=== PATIENT | female | born 1950 | race Caucasian/White ===

== ENCOUNTER 2019-07-18 05:27 | Emergency (ER) | payer MEDICARE, SELFPAY ==
--- NOTE | ~2019-07-18 | XR_ITS ---
EXAMINATION: XR thoracic spine 3V, XR lumbar spine 2-3V DATE: 07/18/2019 07:00 INDICATION: Back pain post fall 3 days prior TECHNIQUE: 1. One AP, lateral and lateral swimmer's views of the thoracic spine were obtained. 2. AP, lateral and coned-down lateral lumbosacral views of the lumbar spine were obtained. COMPARISON: Two-view chest radiograph dated 06/06/2016 FINDINGS: Mild thoracic levocurvature. Sagittal alignment is normal. Burst fractures at T12 and L1 with 40% ant erior vertebral body height loss 2 mm retropulsion at the former and 20% anterior vertebral body heig ht loss and 4 mm retropulsion at the latter. These are new since 06/06/2016. Remaining vertebral body heights are normal. Mild disc height loss and degenerative endplate changes at a few levels in the th oracic spine. Mild degenerative endplate changes without significant disc height loss at L1-L2, L2-L3 and L3-L4. Ankylosis at the bilateral sacroiliac joints. Postoperative changes with surgical clips a nd suture lines in the left epigastric region. IMPRESSION: 1. T12 and L1 burst fractures. 2. Mild thoracolumbar spondylosis. Reviewed, dictated and finalized at location A. IMPRESSION: 1. T12 and L1 burst fractures. 2. Mild thoracolumbar spondylosis.
[2019-07-18 05:35] VITALS: BP 186/78; PULSE 75; RESP 19; TEMP 36.3; O2SAT 100
--- NOTE | 2019-07-18 06:43 | PC.NURSE ---
Patient to radiology.
--- NOTE | 2019-07-18 06:59 | ED.BACK ---
HPI - Back Pain/Injury General Chief Complaint: Back Pain/Injury Stated Complaint: back pain Time Seen by Provider: 07/18/19 05:59 History of Present Illness HPI Narrative: Patient is a 68-year-old female who presents the ER with back pain. Patient has history of dementia and cannot give a history so is at the bedside providing the background. Due to patient's dementia she often wakes up later in the day. On July 13 & upon waking up patient fell out of bed. She cannot tell her whether she felt dizzy or what was occurring that made her fall. She has not had a fall since then has been moving around without issue. However last night patient could not sleep due to discomfort in the upper portion of her back near T2 where there is slight swelling. There is no bruising. Patient is not had any infectious symptoms that the can tell including cough/shortness of breath/dysuria/fever. Has a history of having a UTI couple years ago but nothing recently. Related Data Home Medications Medication Instructions Recorded Confirmed aripiprazole 2 mg tablet 2 mg PO DAILY 05/14/19 05/18/19 aspirin 81 mg tablet,delayed 81 mg PO DAILY 05/14/19 05/18/19 release darifenacin 7.5 mg tablet,extended 7.5 mg PO DAILY 05/14/19 05/18/19 release 24 hr duloxetine 60 mg capsule,delayed 60 mg PO DAILY 05/14/19 05/18/19 release levetiracetam 750 mg tablet 750 mg PO Q12H 05/14/19 05/18/19 memantine 10 mg tablet 10 mg PO BID 05/14/19 05/18/19 multivitamin,ef-joqe-ifnjtywm 1 tablet PO DAILY 05/14/19 05/18/19 donepezil 10 mg tablet 10 mg PO DAILY tablet 05/18/19 05/18/19 glimepiride 4 mg tablet 8 mg PO QAM tablet 05/18/19 05/18/19 blood sugar diagnostic #10 each 07/16/19 lancets 30 gauge #25 each 07/16/19 Allergies Allergy/AdvReac Type Severity Reaction Status Date / Time iodine Allergy Unknown Hives Verified 05/31/19 13:07 shellfish derived Allergy Unknown Hives Verified 05/31/19 13:07 Contrast Media Allergy Mild RASH/DIFFICULTY Uncoded 07/18/19 06:03 BREATHING Review of Systems Review of Systems: ROS unobtainable: unobtainable due to mental status PMFSH Past Medical History Medical History Anxiety Arthritis Back pain Cataracts, both eyes Diabetes mellitus type 2, uncontrolled High blood pressure Osteoporosis Surgical History Surgical History History of ankle fracture s/p ORIF, bilateral History of arthroscopy of knee History of cholecystectomy History of gastric stapling History of hysterectomy Social History Social History Smoking packs per day: 1 Smoking cigarettes per day: 20.0 Years smoked: 30 Smoking pack-years: 30.00 Smoking status: Former smoker Tobacco type: cigarettes Second hand tobacco smoke exposure: No Smoking end date: 04/24/17 Alcohol intake: never Substance use: never Substance use type: does not use Gender identity (if verbalized by the patient): Female Exam Narrative: Exam Narrative: GENERAL: Well-appearing, well-nourished, and in no acute distress. HEAD: Normocephalic, atraumatic. ENT: Mucous membranes moist. NECK: Supple. FROM w/o midline tenderness. CHEST: Clear to auscultation. No respiratory distress. HEART: Regular rate and rhythm. Normal peripheral pulses. EXTREMITIES: Normal range of motion and strength BLE. No edema. BACK: Mild swelling at midline and just to the right at T2 w/o bruising/abrasion. Mild disomfort at this are. TTP at L2 midline. No additional evidence of trauma noted to the back. NEURO: Awake and alert, mild confusion, no slurred speech or facial droop. No sharp/soft touch deficit BLE. PSYCH: Normal mood and affect. Course Course Emergency Course: Patient resting comfortably. Accepted for transfer to [facility] ER by Dr. Horowitz. Vital Signs Vital signs:
[2019-07-18 07:21] LABS: Add Urine Microscopic? YES; Appearance Urine Clear (Clear); Bacteria Urine Trace /hpf; Bilirubin Urine Negative (Negative); Blood Urine Negative (Negative); Color Urine Yellow (Yellow); Glucose Urine UA Negative (Negative); Ketones Urine Negative (Negative); Leukocyte Esterase Ur Negative LEU/UL (Negative); Mucus Urine Rare /lpf; Nitrate Urine Negative (Negative); Protein Urine 2+ mg/dL (Negative); RBC Urine 0-2 /hpf (0-2); Specific Grav Ur 1.021 (1.001-1.035); Squamous Epithelial Cell Urine Occasional /hpf (Few); Urobilinogen Urine Negative mg/dL (<2.0); WBC Urine 0-3 /hpf
[2019-07-18 07:23] VITALS: BP 152/70; PULSE 75; RESP 16; O2SAT 95
[2019-07-18 08:51] VITALS: BP 158/70; PULSE 74; RESP 16; TEMP 37.1; O2SAT 99
== END 2019-07-18 09:42 | disposition short-term general hospital (02) ==
PROVIDERS: Emergency Provider Emergency Medicine; PCP Family Medicine
DX: S22.081A Stable burst fracture of T11-T12 vertebra, initial encounter for closed fracture (principal); S32.011A Stable burst fracture of first lumbar vertebra, initial encounter for closed fracture; M19.90 Unspecified osteoarthritis, unspecified site; E11.9 Type 2 diabetes mellitus without complications; I10 Essential (primary) hypertension; M81.0 Age-related osteoporosis without current pathological fracture; H26.9 Unspecified cataract; Z98.84 Bariatric surgery status; Z87.891 Personal history of nicotine dependence; M47.814 Spondylosis without myelopathy or radiculopathy, thoracic region; W06.XXXA Fall from bed, initial encounter
CPT/HCPCS: 51701; 72072; 72100; 81001; 96374; 99285; J3010

== ENCOUNTER → 2019-10-28 13:10 | Outpatient (CLI) | payer MEDICARE, SELFPAY ==
--- NOTE | ~2019-10-28 | XR_ITS ---
EXAMINATION: XR lumbar spine 2-3V DATE: 10/28/2019 13:46 INDICATION: Low back pain TECHNIQUE: Anteroposterior and lateral views of the lumbar spine, and cone-down lateral view of the l umbosacral junction were obtained. COMPARISON: 07/18/2019 FINDINGS: There are stable burst fractures of T12 and L1. No acute fracture is identified. Vertebral body alignment is normal. The lumbar vertebral body heights are maintained. Small degenerative osteop hytes project from the anterior endplates of multiple vertebral bodies. Calcified atherosclerosis is noted. There are surgical changes of the left upper quadrant. IMPRESSION: 1. Stable burst fractures of T12 and L1 and mild lumbar spondylosis without acute findings or signifi cant interval change. Reviewed, dictated and finalized at location A. IMPRESSION: 1. Stable burst fractures of T12 and L1 and mild lumbar spondylosis without acu te findings or significant interval change.
--- NOTE | ~2019-10-28 | XR_ITS ---
XR thoracic spine 2V DATE: 10/28/2019 13:46 INDICATION: Upper midline back pain after fall 4 days ago TECHNIQUE: AP, lateral, swimmer views COMPARISON: 07/18/2019 thoracic spine FINDINGS: There is moderately severe degenerative spurring at C6-7. Moderate osteopenia. There is mild spurring of the thoracic spine. No fracture or dislocation or bone destruction. The thoracic pedicles are intact. Postoperative change of the left upper quadrant. IMPRESSION: Osteopenia Degenerative changes Reviewed, dictated and finalized at location B.
== END ==
PROVIDERS: Visit Provider Nurse Practitioner Gerontology
DX: S22.080D Wedge compression fracture of T11-T12 vertebra, subsequent encounter for fracture with routine healing (principal); X58.XXXD Exposure to other specified factors, subsequent encounter; M47.896 Other spondylosis, lumbar region; M85.88 Other specified disorders of bone density and structure, other site; M51.34 Other intervertebral disc degeneration, thoracic region
CPT/HCPCS: 72070; 72100

== ENCOUNTER 2019-12-27 09:36 | Observation (INO) | payer MEDICARE, SELFPAY ==
[2019-12-27] VITALS (8 sets, daily range): BP systolic 122–142; BP diastolic 55–73; PULSE 64–92; RESP 16–20; TEMP 35.9–36.6; O2SAT 95–98; BMI 29.7
--- NOTE | ~2019-12-27 | XR_ITS ---
EXAMINATION: XR chest 1V portable INDICATION: Altered mental status TECHNIQUE: Portable AP chest at 1031 hours COMPARISON: 07/02/2017 FINDINGS: There are minimal peripheral airspace opacities in the left mid and lower lung zones. No pl eural effusion or pneumothorax is identified. The cardiomediastinal silhouette is normal. Surgical ch anges are noted near the gastroesophageal junction in the left upper quadrant. IMPRESSION: 1. Minimal peripheral airspace opacities of the left mid and lower lung zones, consistent with atelec tasis versus pneumonia. Reviewed, dictated and finalized at location A. IMPRESSION: 1. Minimal peripheral airspace opacities of the left mid and lower lung zones, consistent with atelectasis versus pneumonia.
--- NOTE | ~2019-12-27 | US_ITS ---
EXAMINATION: US right upper quadrant DATE: 12/27/2019 11:57 INDICATION: Elevated liver function tests TECHNIQUE: Multiple grayscale and Doppler ultrasound images of the abdomen were obtained. COMPARISON: None FINDINGS: The pancreatic body is normal in appearance. The pancreatic head and tail are not visualized. Visual ized proximal inferior vena cava is normal. Liver has normal echogenicity and contour, with a smooth surface. No liver lesion identified. Mild central intrahepatic biliary ductal dilation. Portal venous flow was seen in the hepatopetal, normal direction and has normal Doppler waveform. Gallbladder is n ot visualized and reportedly surgically absent. The common bile duct is dilated to 11 mm. No obstruct ing stone or mass identified however the region of the distal duct is not visualized. Visualized port ion of the right kidney demonstrates normal echogenicity and contour with no hydronephrosis. IMPRESSION: 1. Dilated common bile duct measuring up to 11 mm along with mild central intrahepatic biliary ductal dilation which could be related to prior cholecystectomy. If there is clinical concern for biliary o bstruction would consider MRCP for further evaluation. Reviewed, dictated and finalized at location B. IMPRESSION: 1. Dilated common bile duct measuring up to 11 mm along with mild central intra hepatic biliary ductal dilation which could be related to prior cholecystectomy . If there is clinical concern for biliary obstruction would consider MRCP for further evaluation.
--- NOTE | ~2019-12-27 | CT_ITS ---
EXAMINATION: CT brain wo con INDICATION: Altered mental status, confusion COMPARISON: 07/03/2017, 06/08/2016 TECHNIQUE: Standard unenhanced head CT. The dose-length product (DLP) was 908.00 mGy-cm. The mA was a djusted according to patient size. Iterative reconstruction technique was employed. FINDINGS: There is no acute intraparenchymal hemorrhage. There is an unchanged 1.9 cm hyperdense extr a-axial mass at the superior aspect of the left tentorium and inferomedial to the left temporal lobe, consistent with a meningioma. No evidence of acute infarction. There is mild periventricular and sub cortical hypodensity probably related to small vessel ischemic disease. There is mild prominence of t he sulci and ventricles related to cerebral atrophy. Intracranial calcified cerebral atherosclerosis is noted. There are no extra-axial collections. There is no mass effect or midline shift. The orbits and soft tissues are unremarkable. There is mild mucosal thickening of the paranasal sinuses. IMPRESSION: 1. No acute intracranial abnormality. 2. Age related findings. 3. Stable extra-axial mass on the left, consistent with a meningioma. Reviewed, dictated and finalized at location A.
--- NOTE | 2019-12-27 09:50 | ECG_ITS ---
Measurements Intervals [place] Rate: 64 P: 142 MO: 108 QRS: 0 QRSD: 90 T: 20 QT: 437 QTc: 453 Interpretive Statements SINUS RHYTHM WITH SHORT MO INTERVAL MINIMAL Q WAVES- INFERIOR LEADS BASELINE ARTIFACT- I, III, AVR, AVL,A VF, V1 BORDERLINE ECG Electronically Signed On 12-27-2019 11:48:45 CDT by Elie Garsia D.O.
[2019-12-27 09:55] LABS: Glucose Point of Care 154 (65-105)
[2019-12-27] MEDS: DEXTROSE 5%/0.9% SOD CHL 1,000 ML 100 ML IV CONT (10:06)
[2019-12-27 10:07] LABS: Basophils Absolute Auto 0.02 K/mm3 (0.00-0.10); Basophils Percent Auto 0.4 % (0.0-1.0); Eosinophils Absolute Auto 0.02 K/mm3 (0.02-0.50); Eosinophils Percent Auto 0.4 % (1.0-6.0); Hematocrit 35.3 % (35.0-42.0); Hemoglobin 10.4 g/dL (11.7-13.8); Immature Granulocyte Absolute 0.01 K/mm3 (0.00-0.00); Immature Granulocyte Percent A 0.2 % (0.0-0.0); Lymphocytes Absolute Auto 1.07 K/mm3 (1.10-4.50); Lymphocytes Percent Auto 19.6 % (18.0-42.0); Mean Corpuscular HGB Conc 29.5 g/dL (32.0-36.0); Mean Corpuscular Volume 81.5 fL (78.0-102.0); Mean Platelet Volume 10.6 fl (9.2-11.8); Monocytes Percent Auto 7.3 % (2.0-11.0); Neutrophils Absolute Auto 3.9 K/mm3 (1.7-7.2); Neutrophils Percent Auto 72.1 % (50.0-70.0); Platelet Count Result 347 K/mm3 (150-420); Red Blood Count 4.33 M/mm3 (4.20-5.40); Red Cell Distribution Width 14.3 % (11.6-14.4); White Blood Count 5.5 K/mm3 (4.8-10.8)
[2019-12-27 10:21] LABS: Partial Thromboplastin Time 27.4 SEC (22.3-31.6); Prothrombin Time 10.5 Seconds (9.64-11.0)
[2019-12-27 10:34] LABS: Acetaminophen < 2 ug/mL (10-30); Alanine Aminotransferase 174 U/L (14-59); Albumin Level 3.1 g/dL (3.4-5.0); Alkaline Phosphatase 171 U/L (46-116); Ammonia < 10 umol/L (11-32); Anion Gap 8 mmol/L (8-16); Aspartate Amino Transferase 211 U/L (15-37); Bilirubin,Total 0.2 mg/dL (0.00-1.00); Blood Urea Nitrogen 14 mg/dL (7-18); Calcium 8.8 mg/dL (8.5-10.1); Carbon Dioxide 26 mmol/L (21-32); Chloride 105 mmol/L (98-108); Creatine Kinase 24 U/L (26-192); Estimated CRCL calculation 35 ml/min; Estimated Glomerular Filt Rate 38; Ethanol < 3 mg/dL (0-6); Glucose 167 mg/dL (70-99); Osmolality Calculated 292 mOsm/kg (285-295); Potassium 4.5 mmol/L (3.5-5.1); Salicylate 0.8 mg/dL (2.8-20.0); Sodium 139 mmol/L (136-145); Thyroid Stimulating Hormone 0.71 uIU/mL (0.36-3.74); Total Protein 6.6 g/dL (6.4-8.2); Troponin I < 0.02 ng/mL (0.00-0.056)
[2019-12-27 10:46] LABS: Add Urine Microscopic? YES; Bilirubin Urine Negative (Negative); Blood Urine Negative (Negative); Color Urine Yellow (Yellow); Glucose Urine UA Negative (Negative); Ketones Urine Negative (Negative); Leukocyte Esterase Ur 1+ LEU/UL (Negative); Nitrate Urine Positive (Negative); Protein Urine Negative (Negative); Urobilinogen Urine 0.2 mg/dL (0.2-1.0)
[2019-12-27 10:51] LABS: Appearance Urine Sl Cloudy (Clear); Bacteria Urine 4+ /hpf; RBC Urine 0-2 /hpf (0-2); Squamous Epithelial Cell Urine Few /hpf (Few)
[2019-12-27 10:57] LABS: Amphetamine Screen Urine Negative (Negative); Barbiturate Screen Urine Negative (Negative); Benzodiazepines Screen Urine Negative (Negative); Cannabinoid Screen Urine Negative (Negative); Cocaine Screen Urine Negative (Negative); Methadone Screen Urine Negative (Negative); Opiate Screen Urine Negative (Negative); Phencyclidine Screen Urine Negative (Negative)
--- NOTE | 2019-12-27 11:04 | ED.AMS ---
HPI - Altered Mental Status General Chief Complaint: Altered Mental Status Stated Complaint: 69YO female w/ known h.o DMII was found by to be sweating and unable to answer questions this morning at 8am. called EMS who found pt Bs in 30's. They gave her an amp of d50 and patient's symptoms resolved. Upon further questioning pt's states she has been feelingunwell for last several days w/ poor Po intake but has been taking her usual meds. Related Data Home Medications Medication Instructions Recorded Confirmed aspirin 81 mg tablet,delayed 81 mg PO DAILY 05/14/19 12/27/19 release darifenacin 7.5 mg tablet,extended 7.5 mg PO DAILY 05/14/19 12/27/19 release 24 hr duloxetine 60 mg capsule,delayed 60 mg PO DAILY 05/14/19 12/27/19 release levetiracetam 750 mg tablet 750 mg PO Q12H 05/14/19 12/27/19 memantine 10 mg tablet 10 mg PO BID 05/14/19 12/27/19 donepezil 10 mg tablet 10 mg PO DAILY tablet 05/18/19 12/27/19 bismuth subsalicylate 262 mg tablet 2 tablet PO Q30-60M PRN 11/21/19 12/27/19 psyllium husk 0.4 gram capsule 0.4 gm PO DAILY 11/21/19 12/27/19 Allergies Allergy/AdvReac Type Severity Reaction Status Date / Time iodine Allergy Unknown Hives Verified 05/31/19 13:07 shellfish derived Allergy Unknown Hives Verified 05/31/19 13:07 Contrast Media Allergy Mild RASH/DIFFICULTY Uncoded 07/18/19 06:03 BREATHING Review of Systems Review of Systems: All systems reviewed & are unremarkable except as noted in HPI and below Constitutional: Constitutional: Reports as per HPI, Reports no additional constitutional complaints, Denies chills, Reports fatigue, Denies fever(s) and Reports weakness Eyes: Eyes: Reports as per HPI ENT: Reports system reviewed and no additional complaints, except as documented and Reports as per HPI Cardiovascular: Cardiovascular: Reports as per HPI and Reports no additional cardiovascular complaints Respiratory: Respiratory: Denies chest congestion, Reports cough, Denies dyspnea and Denies wheezing Gastrointestinal: Gastrointestinal: Reports as per HPI and Reports no additional gastrointestinal complaints Genitourinary: Genitourinary: Reports no additional female genitourinary complaints Musculoskeletal: Musculoskeletal: Reports no additional musculoskeletal complaints Integumentary/Breasts: Skin/Breast: Reports system reviewed and no additional complaints, except as docu Neurologic: Reports weakness Psychiatric: Psychiatric: Reports no additional psychiatric complaints Endocrine: Endocrine: Reports excessive sweating Hematologic/Lymphatic: Hematologic/Lymphatic: Reports no additional hematologic/lymphatic complaints Allergic/Immunologic: Allergic/Immunologic: Reports no additional allergic/immunologic complaints PMFSH Past Medical History Medical History Anxiety Arthritis Back pain Cataracts, both eyes Compression fracture T12/ L1 Diabetes mellitus type 2, uncontrolled High blood pressure Osteoporosis Surgical History Surgical History History of ankle fracture s/p ORIF, bilateral History of arthroscopy of knee History of cholecystectomy History of gastric stapling History of hysterectomy Family History Family History Mother Hypertension Family history of diabetes mellitus in first degree relative Family history of thyroid disease Family history of osteoporosis Family history of mental disorder Family history of glaucoma Family history of cataracts Family history of anemia Family history of chronic obstructive pulmonary disease Family history of congestive heart failure Sibling Hypertension Family history of diabetes mellitus in first degree relative Depression Family history of alcoholism Father Family history of diabetes mellitus in first degree relative S
[2019-12-27 11:45] LABS: Lactic Acid 1.3 mmol/L (0.4-2.0)
[2019-12-27 12:00] LABS: Glucose Point of Care 200 (65-105)
[2019-12-27] MEDS: levoFLOXacin 500 MG/D5W 100 ML 500 MG/100 ML BAG 100 MG IVPB (12:03)
--- NOTE | 2019-12-27 12:11 | PC.NURSE ---
VORB FOR D5NS TO BE DISCONTINUED FROM DR COVINGTON
--- NOTE | 2019-12-27 14:30 | PC.NURSE ---
Admitted to 204 for hypoglycemia and pneumonia, current glucose 200, normal WBC and Lactate, Incontinent of urine and stool normal for patient, has hx of dementia, at home had a thick tongue and not acting right since approx 0100, last known BM Monday, reports goes daily, states also sleeps alot during day time which is normal due to dementia, stools due to medication are usually dark in color, normal mentation at this time, did receive IV levaquin in ED, no fever, no decreased appetite, oriented to room and side rails up for safety, education on visitor policy
[2019-12-27] MEDS: DOCUSATE SODIUM 100 MG CAPSULE PO (16:52)
[2019-12-27] MEDS: ENOXAPARIN 40 MG/0.4 ML SYRINGE SUB-Q (16:59)
[2019-12-27 17:04] LABS: Glucose Point of Care 43 (65-105)
[2019-12-27] MEDS: DEXTROSE 50% 25 GM/50 ML SYRINGE IV PUSH (17:05)
--- NOTE | 2019-12-27 17:12 | PC.NURSE ---
eating dinner, d 50 given 1/2 amp for low sugar of 43 no s/s at this time, alert and recognizes , no trouble swallowing
[2019-12-27 17:36] LABS: Glucose Point of Care 87 (65-105)
[2019-12-27 18:32] LABS: Glucose Point of Care 162 (65-105)
[2019-12-27] MEDS: levETIRAcetam 250 MG TABLET 750 MG PO (19:43)
[2019-12-27 20:04] LABS: Glucose Point of Care 208 (65-105)
[2019-12-27] MEDS: DULoxetine HCL 30 MG CAPSULE.DR PO (22:25)
[2019-12-27] MEDS: DONEPEZIL HCL 5 MG TABLET 10 MG PO (22:25)
[2019-12-27 23:50] LABS: Glucose Point of Care 220 (65-105)
[2019-12-28 03:44] LABS: Glucose Point of Care 135 (65-105)
[2019-12-28] MEDS: levETIRAcetam 250 MG TABLET 750 MG PO (05:40)
[2019-12-28 05:45] LABS: Basophils Absolute Auto 0.03 K/mm3 (0.00-0.10); Basophils Percent Auto 0.4 % (0.0-1.0); Eosinophils Absolute Auto 0.07 K/mm3 (0.02-0.50); Hematocrit 33.1 % (35.0-42.0); Hemoglobin 9.7 g/dL (11.7-13.8); Immature Granulocyte Absolute 0.03 K/mm3 (0.00-0.00); Immature Granulocyte Percent A 0.4 % (0.0-0.0); Lymphocytes Absolute Auto 2.34 K/mm3 (1.10-4.50); Lymphocytes Percent Auto 32.6 % (18.0-42.0); Mean Corpuscular HGB Conc 29.3 g/dL (32.0-36.0); Mean Corpuscular Hemoglobin 23.9 pg (27.0-31.0); Mean Corpuscular Volume 81.5 fL (78.0-102.0); Mean Platelet Volume 10.4 fl (9.2-11.8); Monocytes Absolute Auto 0.62 K/mm3 (0.10-0.90); Monocytes Percent Auto 8.6 % (2.0-11.0); Neutrophils Absolute Auto 4.1 K/mm3 (1.7-7.2); Platelet Count Result 309 K/mm3 (150-420); Red Blood Count 4.06 M/mm3 (4.20-5.40); Red Cell Distribution Width 14.6 % (11.6-14.4); White Blood Count 7.2 K/mm3 (4.8-10.8)
[2019-12-28 05:56] LABS: Anion Gap 6 mmol/L (8-16); Blood Urea Nitrogen 16 mg/dL (7-18); Calcium 8.7 mg/dL (8.5-10.1); Carbon Dioxide 27 mmol/L (21-32); Chloride 106 mmol/L (98-108); Estimated CRCL calculation 38 ml/min; Estimated Glomerular Filt Rate 36; Glucose 149 mg/dL (70-99); Osmolality Calculated 292 mOsm/kg (285-295); Potassium 4.2 mmol/L (3.5-5.1); Sodium 139 mmol/L (136-145)
[2019-12-28 08:00] VITALS: BP 142/66; PULSE 66; RESP 16; TEMP 36; O2SAT 99
--- NOTE | 2019-12-28 08:06 | WPDREHABHP ---
H&P: HPI History of Present Illness Date/Time: 12/28/19 08:06 Chief complaint: Hypoglycemia secondary to DMII,CAP,Elevated LFTs Narrative: Cynthia Logan is a 69 year old female who was brought in by ambulance yesterday for hypoglycemia she did respond to dextrose injection. Upon interviewing the yesterday he indicated that the patient looks the same as when she had a seizure 3 years ago and he was concerned this may also be the case yes she was hypoglycemic. Patient is also on Keppra. Patient was not able to communicate very well during assessment provided most of the information. states that when he found her yesterday morning patient was diaphoretic with the same symptoms he described as having a seizure 3 years ago. Patient was admitted under observation by the ER provider. [facility] Past Medical History Medical History Anxiety Arthritis Back pain Cataracts, both eyes Compression fracture T12/ L1 Diabetes mellitus type 2, uncontrolled High blood pressure Osteoporosis Surgical History Surgical History History of ankle fracture s/p ORIF, bilateral History of arthroscopy of knee History of cholecystectomy History of gastric stapling History of hysterectomy Family History Family History Mother Hypertension Family history of diabetes mellitus in first degree relative Family history of thyroid disease Family history of osteoporosis Family history of mental disorder Family history of glaucoma Family history of cataracts Family history of anemia Family history of chronic obstructive pulmonary disease Family history of congestive heart failure Sibling Hypertension Family history of diabetes mellitus in first degree relative Depression Family history of alcoholism Father Family history of diabetes mellitus in first degree relative Social History Social History Smoking packs per day: 1 Smoking cigarettes per day: 20.0 Years smoked: 30 Smoking pack-years: 30.00 Smoking status: Former smoker Tobacco type: cigarettes Second hand tobacco smoke exposure: No Smoking end date: 04/24/17 Alcohol intake: never Substance use: never Substance use type: does not use Gender identity (if verbalized by the patient): Female Spiritual care concerns: No Meds Home Medications and Allergies Home Medications Medication Instructions Recorded Confirmed Type aspirin 81 mg tablet,delayed 81 mg PO DAILY 05/14/19 12/27/19 History release darifenacin 7.5 mg tablet,extended 7.5 mg PO DAILY 05/14/19 12/27/19 History release 24 hr duloxetine 60 mg capsule,delayed 60 mg PO DAILY 05/14/19 12/27/19 History release levetiracetam 750 mg tablet 750 mg PO Q12H 05/14/19 12/27/19 History memantine 10 mg tablet 10 mg PO BID 05/14/19 12/27/19 History donepezil 10 mg tablet 10 mg PO DAILY tablet 05/18/19 12/27/19 History simvastatin 40 mg tablet 40 mg PO QPM #90 tablet 07/15/19 12/27/19 Rx blood-glucose meter #1 each 07/23/19 12/27/19 Rx bismuth subsalicylate 262 mg tablet 2 tablet PO Q30-60M PRN 11/21/19 12/27/19 History psyllium husk 0.4 gram capsule 0.4 gm PO DAILY 11/21/19 12/27/19 History blood sugar diagnostic #200 each 11/22/19 12/27/19 Rx glimepiride 4 mg tablet 8 mg PO QAM 90 Days #180 tablet 11/22/19 12/27/19 Rx lancets 30 gauge #200 each 11/22/19 12/27/19 Rx losartan 25 mg tablet 25 mg PO DAILY 90 Days #90 tablet 11/22/19 12/27/19 Rx metformin 500 mg tablet,extended 1,000 mg PO BID 90 Days #0 tablet 11/22/19 12/27/19 Rx release 24 hr pen needle, diabetic 31 gauge x #100 each 11/22/19 12/27/19 Rx 5/16 insulin degludec 100 unit/mL (3 25 unit SUB-Q QPM 90 Days #30 ml 11/26/19 12/27/19 Rx mL) subcutaneous pen Allergies Allergy/AdvReac
[2019-12-28 08:08] LABS: Glucose Point of Care 157 (65-105)
[2019-12-28] MEDS: levETIRAcetam 500 MG TABLET 250 MG PO (09:18)
[2019-12-28] MEDS: LOSARTAN POTASSIUM 25 MG TABLET PO (09:19)
[2019-12-28] MEDS: MEMANTINE 5 MG TABLET 2.5 MG PO (09:19)
[2019-12-28] MEDS: PSYLLIUM POWDER PACKET 1 PACKET PO (09:19)
[2019-12-28] MEDS: ASPIRIN 81 MG ENTERIC TABLET PO (09:19)
[2019-12-28] MEDS: DOCUSATE SODIUM 100 MG CAPSULE PO (09:19)
--- NOTE | 2019-12-28 11:29 | PM.SD ---
Same Day Admit/Disch: HPI History of Present Illness Chief complaint: Hypoglycemia secondary to DMII,CAP,Elevated LFTs Narrative: Cynthia Logan is a 69 year old female who was brought in by ambulance yesterday for hypoglycemia she did respond to dextrose injection. Upon interviewing the yesterday he indicated that the patient looks the same as when she had a seizure 3 years ago and he was concerned this may also be the case yes she was hypoglycemic. Patient is also on Keppra. Patient was not able to communicate very well during assessment provided most of the information. states that when he found her yesterday morning patient was diaphoretic with the same symptoms he described as having a seizure 3 years ago. Patient was admitted under observation by the ER provider. [facility] Past Medical History Medical History Anxiety Arthritis Back pain Cataracts, both eyes Compression fracture T12/ L1 Diabetes mellitus type 2, uncontrolled High blood pressure Osteoporosis Surgical History Surgical History History of ankle fracture s/p ORIF, bilateral History of arthroscopy of knee History of cholecystectomy History of gastric stapling History of hysterectomy Family History Family History Mother Hypertension Family history of diabetes mellitus in first degree relative Family history of thyroid disease Family history of osteoporosis Family history of mental disorder Family history of glaucoma Family history of cataracts Family history of anemia Family history of chronic obstructive pulmonary disease Family history of congestive heart failure Sibling Hypertension Family history of diabetes mellitus in first degree relative Depression Family history of alcoholism Father Family history of diabetes mellitus in first degree relative Social History Social History Smoking packs per day: 1 Smoking cigarettes per day: 20.0 Years smoked: 30 Smoking pack-years: 30.00 Smoking status: Former smoker Tobacco type: cigarettes Second hand tobacco smoke exposure: No Smoking end date: 04/24/17 Alcohol intake: never Substance use: never Substance use type: does not use Gender identity (if verbalized by the patient): Female Spiritual care concerns: No Same Day Admit/Disch: Med Pre-admit Medications Home Medications Medication Instructions Recorded Confirmed Type aspirin 81 mg tablet,delayed 81 mg PO DAILY 05/14/19 12/27/19 History release darifenacin 7.5 mg tablet,extended 7.5 mg PO DAILY 05/14/19 12/27/19 History release 24 hr duloxetine 60 mg capsule,delayed 60 mg PO DAILY 05/14/19 12/27/19 History release levetiracetam 750 mg tablet 750 mg PO Q12H 05/14/19 12/27/19 History memantine 10 mg tablet 10 mg PO BID 05/14/19 12/27/19 History donepezil 10 mg tablet 10 mg PO DAILY tablet 05/18/19 12/27/19 History simvastatin 40 mg tablet 40 mg PO QPM #90 tablet 07/15/19 12/27/19 Rx blood-glucose meter #1 each 07/23/19 12/27/19 Rx bismuth subsalicylate 262 mg tablet 2 tablet PO Q30-60M PRN 11/21/19 12/27/19 History psyllium husk 0.4 gram capsule 0.4 gm PO DAILY 11/21/19 12/27/19 History blood sugar diagnostic #200 each 11/22/19 12/27/19 Rx glimepiride 4 mg tablet 8 mg PO QAM 90 Days #180 tablet 11/22/19 12/27/19 Rx lancets 30 gauge #200 each 11/22/19 12/27/19 Rx losartan 25 mg tablet 25 mg PO DAILY 90 Days #90 tablet 11/22/19 12/27/19 Rx metformin 500 mg tablet,extended 1,000 mg PO BID 90 Days #0 tablet 11/22/19 12/27/19 Rx release 24 hr pen needle, diabetic 31 gauge x #100 each 11/22/19 12/27/19 Rx 5/16 insulin degludec 100 unit/mL (3 25 unit SUB-Q QPM 90 Days #30 ml 11/26/19 12/27/19 Rx mL) subcutaneous pen Exam Const: General: co
[2019-12-28 11:51] LABS: Glucose Point of Care 280 (65-105)
[2019-12-28] MEDS: levoFLOXacin 500 MG/D5W 100 ML 500 MG/100 ML BAG 100 MG IVPB (12:50)
[2020-01-01 11:46] LABS: Levetiracetam Keppra 46.6 mcg/mL (12.0-46.0)
--- NOTE | 2020-01-01 14:22 | PM.EVENT ---
Event Note Event Note Event Note: Sensitivity returned K pneumoniae and E. coli both sensitive to Bactrim. E scribed prescription to pharmacy and call patient to inform that medication had been changed.
== END 2019-12-28 14:25 | disposition home or self-care (01) ==
LOC: CHSED 11:22 → CHS2ND 13:41
PROVIDERS: Nurse Practitioner Family; Admitting Provider Family Medicine; Emergency Provider Family Medicine; Visit Provider Family Medicine
DX: E11.649 Type 2 diabetes mellitus with hypoglycemia without coma (principal); N39.0 Urinary tract infection, site not specified; J18.9 Pneumonia, unspecified organism; R74.8 Abnormal levels of other serum enzymes; I10 Essential (primary) hypertension; R56.9 Unspecified convulsions; M81.0 Age-related osteoporosis without current pathological fracture; H26.9 Unspecified cataract; R93.89 Abnormal findings on diagnostic imaging of other specified body structures; F41.9 Anxiety disorder, unspecified; Z87.891 Personal history of nicotine dependence; Z98.84 Bariatric surgery status
CPT/HCPCS: 36415; 70450; 71045; 76705; 80048; 80053; 80177; 80307; 81001; 82140; 82550; 82948; 83605; 84443; 84484; 85025; 85610; 85730; 87040; 87086; 87088; 87147; 87186; 93005; 96361; 96365; 96366; 96372; 96375; 99283; 99285; A9270; G0378; J1650; J1956; J7042

== ENCOUNTER 2020-12-01 13:07 | Outpatient (CLI) | payer MEDICARE, SELFPAY ==
--- NOTE | 2020-12-02 09:41 | WPDNEUROLOGY ---
Neurology EEG Report General Information Date of Study: 12/01/20 TEST eeg DIAGNOSIS Dysfunction with arousal disturbances CONDITION OF RECORDING awake drowsy and sleep EEG NUMBER [id number] CLINICAL HISTORY patient unable to give history, stated patient had a seizure about 3 years ago and has ongoing dementia. EEG DESCRIPTION basic resting occipital frequency consists of small amount of poorly organized low voltage 9 to 11 hertz per 2nd alpha admixed with low-voltage 15 to 18 hertz per 2nd beta. During drowsiness low-voltage beta activity seen diffusely admixed with waxing and waning theta activity. Bilateral intermittent delta activity seen with right hemispheric dominant during wakefulness and drowsiness. Photic stimulation produced poor drive, hyperventilation not done. Non paroxysmal ,focal and lateralizing IMPRESSION abnormal record due to the presence of bihemispheric theta and delta activity with right hemispheric dominance clinical correlation recommended, these abnormalities could be consistent with the ongoing neuro degenerative process or metabolic encephalopathy in addition to the possibility of postictal state.
== END 2020-12-01 13:08 | disposition home or self-care (01) ==
PROVIDERS: PCP Family Medicine; Visit Provider Psychiatry & Neurology Neurology
DX: G47.51 Confusional arousals (principal)
CPT/HCPCS: 95816

== ENCOUNTER 2020-12-08 12:50 | Outpatient (CLI) | payer MEDICARE, SELFPAY ==
--- NOTE | ~2020-12-08 | MR_ITS ---
EXAMINATION: MR brain/brain stem wo con DATE: 12/08/2020 13:37 INDICATION: Dementia. TECHNIQUE: Magnetic resonance imaging (MRI) of the brain and brainstem was performed without intraven ous contrast. Sequences included sagittal and axial T1-weighted FSE, axial diffusion-weighted FS EPI, axial T2*-weighted GRE, axial T2-weighted FLAIR Propeller, and axial T2-weighted Propeller. Apparent diffusion coefficient (ADC) maps were created. COMPARISON: Brain MRI 05/20/2017, 02/22/2017 FINDINGS: There is no acute ischemic infarct or intracranial hemorrhage. There is a 2.2 x 1.3 cm extr a-axial mass inferior to left temporal lobe, consistent with a meningioma. There are scattered areas of nonspecific increased T2-weighted signal intensity in the cerebral white matter and krystina. The vent ricles are normal in size. There are likely changes of ocular lens replacement surgeries. The paranas al sinuses are clear. There is a trace left mastoid effusion. IMPRESSION: 1. 2.2 cm meningioma inferior to left upper lobe, stable from 17. 2. Worsened moderate nonspecific cerebral white matter disease and pontine disease, which likely repr esents chronic small vessel ischemic disease. Reviewed, dictated and finalized at location B. IMPRESSION: 1. 2.2 cm meningioma inferior to left upper lobe, stable from 17. 2. Worsened moderate nonspecific cerebral white matter disease and pontine dise ase, which likely represents chronic small vessel ischemic disease.
== END 2020-12-08 12:51 | disposition home or self-care (01) ==
LOC: ANHIMG 12:54
PROVIDERS: PCP Family Medicine; Visit Provider Psychiatry & Neurology Neurology
DX: G47.8 Other sleep disorders (principal); R93.0 Abnormal findings on diagnostic imaging of skull and head, not elsewhere classified
CPT/HCPCS: 70551

== ENCOUNTER 2021-04-18 18:51 | Inpatient (IN) | payer MEDICARE, SELFPAY ==
--- NOTE | ~2021-04-18 | CT_ITS ---
EXAMINATION:CT chest high resolution wo wi DATE: 04/21/2021 09:48 INDICATION: Cough. TECHNIQUE: Computed tomography (CT) of the chest was performed without intravenous contrast. Automate d exposure control and iterative reconstruction technique were employed. The dose-length product (DLP ) was 475.69 mGy-cm. COMPARISON: Chest single view 04/20/2021 FINDINGS: Motion artifact is noted. There are a few nodules in the lungs measuring up to 3 mm, likely benign. No bronchiectasis or honeycombing. No pleural effusion. The heart size is normal. There are coronary artery calcifications. No pericardial effusion. Calcifications in the spleen are consistent with old granulomatous disease. There are surgical changes of the stomach. There is mild thoracic spo ndylosis. There are chronic burst fractures of T12 and L1. IMPRESSION: 1. Small lung nodules, likely benign. Reviewed, dictated and finalized at location B. RER SALVAGE
--- NOTE | ~2021-04-18 | XR_ITS ---
EXAMINATION: XR chest 2V DATE: 04/18/2021 19:18 INDICATION: Shortness of breath, cough and weakness. TECHNIQUE: frontal and lateral views of the chest were obtained. COMPARISON: Chest radiograph dated 12/27/19 and lumbar spine radiograph dated 10/28/2019 FINDINGS: The lungs are clear with no focal airspace opacities, pulmonary edema, pleural effusion or pneumothor ax. The cardiomediastinal silhouette is normal. Postoperative change left upper quadrant with suture line and multiple surgical clips. Chronic T12 and L1 compression fractures. IMPRESSION: 1. No acute cardiopulmonary disease. Reviewed, dictated and finalized at location H. AN PROFESSOR
--- NOTE | ~2021-04-18 | XR_ITS ---
EXAMINATION: XR chest 1V portable EXAM DATE: 04/20/2021 12:54 INDICATION: influenza, isolation precautions. TECHNIQUE: Portable AP frontal chest x-ray was obtained. Comparison is made to prior examination from 04/18/2021. FINDINGS: The lungs are clear. There are no pleural effusions. The cardiomediastinal silhouette is p rominent but magnified on this AP technique. There is no pneumothorax suspected. The bones and so ft tissues are unremarkable. IMPRESSION: No acute cardiopulmonary findings. Reviewed, dictated and finalized at location A. UM CASTER
[2021-04-18 18:55] VITALS: BP 153/85; PULSE 72; RESP 18; TEMP 36.9; O2SAT 100
--- NOTE | 2021-04-18 18:59 | ECG_ITS ---
Measurements Intervals Hubbard Rate: 70 P: 41 MT: 144 QRS: -17 QRSD: 90 T: 19 QT: 376 QTc: 407 Interpretive Statements SINUS OR ECTOPIC ATRIAL RHYTHM BASELINE ARTIFACT- V3, V6 BORDERLINE ECG Electronically Signed On 04-18-2021 20:14:35 VAULT PERSON by Elie Garsia D.O.
[2021-04-18 19:37] LABS: Basophils Absolute Auto 0.1 K/mm3 (0.0-0.1); Basophils Percent Auto 0.6 % (0.2-1.2); Hematocrit 33.4 % (37.0-47.0); Hemoglobin 10.1 g/dL (12.0-15.0); Immature Granulocyte Absolute 0.04 K/mm3 (0.00-0.031); Immature Granulocyte Percent A 0.5 % (0-0.5); Lymphocytes Absolute Auto 0.56 K/mm3 (0.9-3.2); Lymphocytes Percent Auto 6.8 % (18.3-44.2); Mean Corpuscular HGB Conc 30.2 g/dl (32-36); Mean Corpuscular Hemoglobin 23.3 pg (26-34); Mean Platelet Volume 10.8 fl (7.4-10.4); Monocytes Absolute Auto 0.6 K/mm3 (0.1-0.6); Monocytes Percent Auto 7.7 % (2.6-8.5); Neutrophils Absolute Auto 6.9 K/mm3 (1.3-6.7); Neutrophils Percent Auto 84.4 % (45.5-73.1); Platelet Count Result 286 k/mm3 (150-375); Red Blood Count 4.34 M/mm3 (4.2-5.4); Red Cell Distribution Width 14.6 % (11.5-14.5); White Blood Count 8.2 K/mm3 (4.5-10.0)
[2021-04-18 19:47] LABS: Alanine Aminotransferase 81 U/L (4-35); Albumin Level 3.8 g/dL (3.5-5.1); Alkaline Phosphatase 139 U/L (38-126); Anion Gap 2 mmol/L (8-16); Aspartate Amino Transferase 104 U/L (14-36); Bilirubin,Total 0.2 mg/dL (0.2-1.3); Blood Urea Nitrogen 14 mg/dL (7-17); Calcium 8.9 mg/dL (8.4-10.2); Carbon Dioxide 28 mmol/L (22-30); Chloride 100 mmol/L (98-107); Estimated Glomerular Filt Rate 37; Glucose 261 mg/dL (65-110); Potassium 5.3 mmol/L (3.4-5.0); Sodium 130 mmol/L (137-145)
--- NOTE | 2021-04-18 19:48 | ED.GENADULT ---
HPI - General Adult General Chief complaint: Upper Respiratory Infection Stated complaint: WET COUGH SINCE YEST, CANT WALK TODAY Time Seen by Provider: 04/18/21 19:19 History of Present Illness HPI narrative: Patient is a 70-year-old female who presents ER with cough. Began yesterday morning and has progressively worsened over the last 24 hours. Is very wet. reports yesterday evening after celebrating Dominick patient was too weak to walk. She has been that way throughout the day. Patient has dementia. She is vaccinated against Covid. No known exposures. denies any recent vomiting or possible aspiration. No history of heart failure. Patient found to be hypoxic here, does not wear O2 at home. Related Data Home Medications Medication Instructions Recorded Confirmed aspirin 81 mg tablet,delayed 81 mg PO HS 05/14/19 04/19/21 release duloxetine 60 mg capsule,delayed 60 mg PO DAILY 05/14/19 04/19/21 release memantine 10 mg tablet 10 mg PO BID 05/14/19 04/19/21 donepezil 10 mg tablet 10 mg PO DAILY tablet 05/18/19 04/19/21 multivitamin 1 tablet PO DAILY 04/07/21 04/19/21 trazodone 50 mg tablet 25 mg PO QHS PRN 04/07/21 04/19/21 glimepiride 1 mg PO QPM 04/19/21 04/19/21 levetiracetam 750 mg PO BID 04/19/21 04/19/21 metformin 500 mg BID 04/19/21 04/19/21 Allergies Allergy/AdvReac Type Severity Reaction Status Date / Time iodine Allergy Unknown Hives Verified 04/07/21 14:50 shellfish derived Allergy Unknown Hives Verified 04/07/21 14:50 Contrast Media Allergy Mild RASH/DIFFICULTY Uncoded 04/07/21 14:50 BREATHING Review of Systems Review of Systems: ROS unobtainable: Yes unobtainable due to mental status Constitutional: Constitutional: Denies chills, Reports fatigue, Denies fever(s) and Reports weakness Respiratory: Respiratory: Reports chest congestion, Reports cough and Reports dyspnea Gastrointestinal: Gastrointestinal: Denies diarrhea, Denies nausea and Denies vomiting [facility] Past Medical History Medical History (Updated 04/19/21 @ 07:26 by Topher Azevedo MD) Aftercare for fracture of vertebrae Anxiety Arthritis Back pain Cataracts, both eyes Chronic kidney disease, stage III (moderate) Compression fracture T12/ L1 Dementia Diabetic peripheral neuropathy High blood pressure Osteoporosis Pure hypercholesterolemia, unspecified Type 2 diabetes mellitus with hyperglycemia Surgical History Surgical History History of ankle fracture s/p ORIF, bilateral History of arthroscopy of knee History of cholecystectomy History of gastric stapling History of hysterectomy Family History Family History Mother Hypertension Family history of congestive heart failure Family history of diabetes mellitus in first degree relative Family history of thyroid disease Family history of osteoporosis Family history of mental disorder Family history of glaucoma Family history of cataracts Family history of anemia Family history of chronic obstructive pulmonary disease Sibling Hypertension Family history of diabetes mellitus in first degree relative Depression Family history of alcoholism Father Family history of diabetes mellitus in first degree relative Social History Social History Smoking packs per day: 1 Smoking cigarettes per day: 20.0 Years smoked: 30 Smoking pack-years: 30.00 Smoking status: Never smoker Second hand tobacco smoke exposure: No Alcohol intake: never Substance use: never Substance use type: does not use Gender identity (if verbalized by the patient): Female Sexual Orientation (if Verbalized by the Patient): Straight or Heterosexual Spiritual care concerns: No Exam Narrative: GENERAL: Ill-appearing, well-nourished, and in no acute distress. HEAD: Normocephalic, atraum
[2021-04-18] MEDS: SODIUM CHLORIDE 0.9% IV 1,000 ML 999 ML IV CONT (21:16)
[2021-04-18 21:17] VITALS: BP 146/73; PULSE 73; RESP 18; O2SAT 100
--- NOTE | 2021-04-18 21:51 | PM.IMHP ---
H&P: HPI History of Present Illness Date/Time: 04/18/21 21:51 Chief Complaint: Weakness. Narrative: This is a 70-year-old female with past medical history significant for type 2 diabetes mellitus, hypertension, advanced dementia, patient lives at home and her caregiver is her she is vaccinated against COVID. According to he noticed that she has been sleeping longer than usual she went for dinner other daughters on and every since in to be as usual however once they got home and she got out of the car she was weak to walk. Her brings her in today for evaluation. As per she has been eating well and drinking well did not notice any rigors, or cough or sputum production, no nausea ,vomiting or diarrhea. Preliminary workup was significant for low pulse ox patient require to be placed on 4 L by nasal cannula a chest x-ray did not show any acute infiltrates, chemistry panel was significant for a sodium of 130 potassium 5.3 creatinine of 1.4 brain atretic peptide was up wards 2000, AST/ALT/alk-phos were 104/89/139 hemoglobin of 10 MCV of 77. Patient tested negative for COVID a rapid test. Patient has been admitted for further evaluation, management and treatment. Review of Systems Review of Systems: ROS unobtainable: Yes unobtainable due to medical condition (Advanced dementia) [facility] Past Medical History Medical History (Updated 04/19/21 @ 02:52 by Jennifer Arias MD) Aftercare for fracture of vertebrae Anxiety Arthritis Back pain Cataracts, both eyes Chronic kidney disease, stage III (moderate) Compression fracture T12/ L1 Dementia Diabetic peripheral neuropathy High blood pressure Osteoporosis Pure hypercholesterolemia, unspecified Type 2 diabetes mellitus with hyperglycemia Surgical History Surgical History History of ankle fracture s/p ORIF, bilateral History of arthroscopy of knee History of cholecystectomy History of gastric stapling History of hysterectomy Family History Family History Mother Hypertension Family history of congestive heart failure Family history of diabetes mellitus in first degree relative Family history of thyroid disease Family history of osteoporosis Family history of mental disorder Family history of glaucoma Family history of cataracts Family history of anemia Family history of chronic obstructive pulmonary disease Sibling Hypertension Family history of diabetes mellitus in first degree relative Depression Family history of alcoholism Father Family history of diabetes mellitus in first degree relative Social History Social History Smoking packs per day: 1 Smoking cigarettes per day: 20.0 Years smoked: 30 Smoking pack-years: 30.00 Smoking status: Former smoker Tobacco type: cigarettes Second hand tobacco smoke exposure: No Smoking end date: 04/24/17 Alcohol intake: never Substance use: never Substance use type: does not use Gender identity (if verbalized by the patient): Female Sexual Orientation (if Verbalized by the Patient): Straight or Heterosexual Spiritual care concerns: No Meds Home Medications and Allergies Home Medications Medication Instructions Recorded Confirmed Type aspirin 81 mg tablet,delayed 81 mg PO HS 05/14/19 04/07/21 History release duloxetine 60 mg capsule,delayed 60 mg PO DAILY 05/14/19 04/19/21 History release memantine 10 mg tablet 10 mg PO BID 05/14/19 04/19/21 History donepezil 10 mg tablet 10 mg PO DAILY tablet 05/18/19 04/19/21 History omeprazole 20 mg capsule,delayed 20 mg PO DAILY #90 cap 07/29/20 04/19/21 Rx release simvastatin 40 mg tablet 40 mg PO QPM #90 tablet 09/16/20 04/19/21 Rx Tresiba FlexTouch U-100 100 14 unit SUB-Q QPM 90 Days #12.6 ml 12/21/20 04/19/21 Rx unit/mL (3 mL) subcut
[2021-04-18 22:11] LABS: NT Pro B Type Natriuretic Pept 2080 pg/mL (5-100)
[2021-04-18 23:31] VITALS: BP 147/65; PULSE 90; RESP 18; O2SAT 92
[2021-04-19] MEDS: SODIUM CHLORIDE 0.9% IV 1,000 ML 125 ML IV CONT (00:02)
[2021-04-19 00:05] VITALS: BP 155/68; PULSE 85; RESP 24; O2SAT 95
[2021-04-19 00:27] LABS: EDCOVIDSCREEN Negative (Negative)
[2021-04-19 01:01] VITALS: BMI 19.4
--- NOTE | 2021-04-19 01:03 | ADMGEN ---
This patient, Cytnhia Logan, was admitted to [facility] Surg Room 325-02. Patient/family oriented to hospital policies and general routines including ID bracelet, bed and alarms, visiting hours, pain management, procedures, bathroom and other care routines, personal items, smoking policy, room service/diet, and visiting hours. Information on how to activate the Rapid Response Team has been discussed. Patient/Family are encouraged to report perceived risks to care and to ask questions if they do not understand what they are told or what they should do.
[2021-04-19 01:12] VITALS: BMI 19.4
[2021-04-19 03:13] LABS: Anion Gap 0 mmol/L (8-16); Blood Urea Nitrogen 14 mg/dL (7-17); Calcium 8.1 mg/dL (8.4-10.2); Carbon Dioxide 27 mmol/L (22-30); Chloride 105 mmol/L (98-107); Estimated CRCL calculation 33 ml/min; Estimated Glomerular Filt Rate 41; Glucose 65 mg/dL (65-110); Sodium 132 mmol/L (137-145)
[2021-04-19 06:34] VITALS: BP 149/73; PULSE 79; RESP 20; TEMP 36.5; O2SAT 96
[2021-04-19 08:00] VITALS: BP 144/62; PULSE 83; RESP 16; TEMP 36.7; O2SAT 94
[2021-04-19 08:06] LABS: Glucose Point of Care 80 mg/dl (65-105)
[2021-04-19] MEDS: MIRABEGRON 25 MG ER TABLET PO (08:21)
[2021-04-19] MEDS: PANTOPRAZOLE 40 MG TABLET PO (08:21)
[2021-04-19] MEDS: levETIRAcetam 250 MG TABLET 750 MG PO ×2 (08:21→17:09)
[2021-04-19] MEDS: DULoxetine HCL 60 MG CAPSULE.DR PO (08:21)
[2021-04-19] MEDS: DONEPEZIL HCL 10 MG TABLET PO (08:21)
[2021-04-19] MEDS: MEMANTINE 10 MG TABLET PO ×2 (08:21→17:10)
[2021-04-19 09:16] LABS: D Dimer 0.29 ug/mL (<0.48)
[2021-04-19 10:32] LABS: Add Urine Microscopic? YES; Appearance Urine Cloudy (Clear); Bilirubin Urine Negative (Negative); Blood Urine Negative (Negative); Color Urine Yellow (Yellow); Glucose Urine UA Negative (Negative); Ketones Urine Negative (Negative); Leukocyte Esterase Ur Negative LEU/UL (Negative); Mucus Urine Rare /lpf; Nitrate Urine Negative (Negative); Protein Urine 3+ mg/dL (Negative); Specific Grav Ur 1.014 (1.001-1.035); Squamous Epithelial Cell Urine Moderate /hpf (Few); Urobilinogen Urine Negative mg/dL (<2.0); WBC Urine 0-3 /hpf
[2021-04-19 10:34] LABS: Influenza Control Positive
--- NOTE | 2021-04-19 10:52 | PC.NURSE ---
Pt requesting pt receive flu shoot at discharge.
[2021-04-19 11:50] LABS: Glucose Point of Care 126 mg/dl (65-105)
[2021-04-19 12:00] VITALS: BP 151/65; PULSE 93; RESP 18; TEMP 36.7; O2SAT 94
--- NOTE | 2021-04-19 14:44 | PM.IMPN ---
Progress Note: A&P Assessment and Plan (1) Influenza A: Code(s): J10.1 - Influenza due to other identified influenza virus with other respiratory manifestations Status: Acute Assessment and Plan: Patient is positive for influenza A -start Tamiflu, stop antibiotics -no pneumonia noted on chest x-ray. Hypoxia has resolved -monitor (2) Acute respiratory failure with hypoxia: Code(s): J96.01 - Acute respiratory failure with hypoxia Status: Acute Assessment and Plan: Resolved -likely due to above -pneumonia not seen on x-ray, no bacterial pneumonia suspected. Will discontinue antibiotics -D-dimer negative, PE less likely -BNP elevated, will obtain echo. Clinically she appears to be euvolemic (3) Abnormal liver enzymes: Code(s): R74.8 - Abnormal levels of other serum enzymes Status: Acute Assessment and Plan: Trending down from the prior visit but still elevated -no pain to the area -will add hepatitis screen for the morning -liver normal on u/s 12/27/2019 when her liver enzymes were higher (4) Chronic kidney disease, stage III (moderate): Code(s): N18.3 - Chronic kidney disease, stage 3 (moderate) Status: Acute Assessment and Plan: At baseline (5) Hypochromic microcytic anemia: Code(s): D50.9 - Iron deficiency anemia, unspecified Status: Acute Assessment and Plan: Chronically low but unchanged since last year -no bleeding noted on exam (6) Type 2 diabetes mellitus with hyperglycemia: Code(s): E11.65 - Type 2 diabetes mellitus with hyperglycemia Status: Acute Assessment and Plan: Last glucose 126 -patient usually on 14 units of Tresiba at home. Will hold insulin since the patient has a decreased appetite and has been running within acceptable range -continue sliding scale insulin (7) Diabetic peripheral neuropathy: Code(s): E11.42 - Type 2 diabetes mellitus with diabetic polyneuropathy Status: Acute Assessment and Plan: Chronic and unchanged (8) Dementia: Code(s): F03.90 - Unspecified dementia without behavioral disturbance Status: Acute Assessment and Plan: Chronic and unchanged -continue donepezil and memantine. (9) Major depressive disorder, single episode, unspecified: Code(s): F32.9 - Major depressive disorder, single episode, unspecified Status: Acute Assessment and Plan: Continue Mirabregon, duloxetine. (10) Overactive bladder: Code(s): N32.81 - Overactive bladder Status: Acute Assessment and Plan: Continue oxybutynin Time Spent With Patient Time with patient: 25 - 35 minutes Subjective Date/time seen: 04/19/21 14:44 Interval history: Pt is a 70-year-old female here cough and weakness. Patient was seen today and states she is doing okay and that she wants to go home. She denies chest pain, shortness of breath, fevers, chills, nausea, vomiting, diarrhea or constipation. She has dementia but able to hold a pretty good conversation and was alert and oriented to herself, place and situation. I called and spoke with the and let him know the plan of care. Review of Systems Review of Systems: All systems reviewed & are unremarkable except as noted in HPI and below Exam Narrative: General: Well developed well nourished patient in NAD HEENT: normocephalic Neck: supple Neuro: Alert and oriented x3. No neurologic focal deficits noted CV:RRR Resp:CTA, no crackles, rhonchi or conversational dyspnea Abd: Soft, non distended. No pain to palpation. Positive bowel sounds Extremities: No swelling, erythema, or pain to palpation. Objective Data Vital Signs Vital Signs: Vital Signs - 24 hr 04/18/21 18:55 04/18/21 21:17 04/18/21 23:31 Temperature 98.4 F Pulse Rate 72 73 90 Respiratory Rate 18 18 18 Blood Pressure 153/85 H 146/73 H 147/65 H
[2021-04-19 16:00] VITALS: BP 157/55; PULSE 82; RESP 20; TEMP 36.6; O2SAT 91
[2021-04-19] MEDS: SIMVASTATIN 20 MG TABLET 40 MG PO (17:10)
[2021-04-19 17:27] LABS: Glucose Point of Care 148 mg/dl (65-105)
--- NOTE | 2021-04-19 18:53 | PC.NURSE ---
Reported rash to Sandra John, awaiting call back.
[2021-04-19 19:04] LABS: SARS-CoV-2 RNA PCR Negative
[2021-04-19] MEDS: OSELTAMIVIR PHOSPHATE 30 MG CAPSULE PO (20:42)
[2021-04-19] MEDS: ASPIRIN 81 MG ENTERIC TABLET PO (20:42)
[2021-04-19 21:51] LABS: Glucose Point of Care 130 mg/dl (65-105)
[2021-04-19 22:00] VITALS: BP 160/75; PULSE 90; RESP 20; TEMP 36.5; O2SAT 94
[2021-04-20] VITALS (10 sets, daily range): BP systolic 123–159; BP diastolic 41–71; PULSE 70–87; RESP 16–20; TEMP 36.5–36.9; O2SAT 84–97
--- NOTE | 2021-04-20 | ECHO_ITS ---
Patient Info Name: Cynthia Logan Age: 70 years : 1950 Gender: Female Ht: 67 in Wt: 124 lbs BSA: 1.62 m2 HR: 87 bpm BP: 159 / 71 mmHg Heart Rhythm: Sinus Rhythm Technical Quality: Fair Exam Date: 04/20/2021 9:22 AM Exam Location: [facility] Card Pulmonary Patient Status: Inpatient Admit Date: 04/18/2021 Staff Ordering Physician: Kelly Siddiqui PA-C Logger All Round: Kayleigh Liz RDCS Attending Provider: Kelly Siddiqui PA-C Referring Physician: Artur WALKER; Exam Type: CA echo doppler color flow Study Info Indications - sob, elevated bnp Complete two-dimensional, color flow and Doppler transthoracic echocardiogram is performed. Summary 1. Complete two-dimensional, color flow and Doppler transthoracic echocardiogram is performed. 2. Left ventricular chamber dimension is normal. 3. Left ventricular systolic function is normal, estimated at 60-65%. 4. There is mildly increased left ventricular wall thickness. 5. The left ventricular diastolic function is grade I diastolic dysfunction. 6. Left atrial chamber dimension is mildly enlarged. 7. There is mild tricuspid valve regurgitation. Left Ventricle Left ventricular chamber dimension is normal. Left ventricular systolic function is normal, estimated at 60-65%. There is mildly increased left ventricular wall thickness. The left ventricular diastolic function is grade I diastolic dysfunction. Right Ventricle Right ventricular chamber dimension is normal. Right ventricular systolic function is normal. Left Atria Left atrial chamber dimension is mildly enlarged. Right Atria Right atrial chamber dimension is normal. Atrial Septum Intact interatrial septum visualized by color flow imaging. Aortic Valve The aortic valve is trileaflet. There is mild aortic valve sclerosis. There is no aortic valve stenosis. There is trace aortic valve regurgitation. Pulmonic Valve The pulmonic valve is normal. There is no pulmonic valve stenosis. There is trace pulmonic regurgitation. Mitral Valve The mitral valve has normal leaflets. There is no mitral valve stenosis. There is trace mitral valve regurgitation. Tricuspid Valve The tricuspid valve leaflets are normal. There is no significant tricuspid valve stenosis. There is mild tricuspid valve regurgitation. No pulmonary hypertension, estimated pulmonary arterial systolic pressure is 30 mmHg. Pericardium/Pleural The pericardium appears normal. There is no pericardial effusion. Inferior Vena Cava Normal inferior vena cava with >50% collapse upon inspiration consistent with normal right atrial pressure, 5 mmHg. Aorta The aortic root size at the sinus of Valsalva is normal. Left Ventricular Outflow Tract Name Value Normal LVOT 2D LVOT Diameter 2.0 cm LVOT Doppler LVOT Peak Gradient 8 mmHg LVOT Mean Gradient 3 mmHg LVOT VTI 21 cm LVOT VTI/AV VTI Ratio 0.8 LVOT Stroke Volume 70 ml LVOT CO
[2021-04-20 06:45] LABS: Basophils Percent Auto 0.4 % (0.2-1.2); Eosinophils Percent Auto 0.2 % (0-4.4); Hematocrit 30.9 % (37.0-47.0); Hemoglobin 9.1 g/dL (12.0-15.0); Immature Granulocyte Absolute 0.02 K/mm3 (0.00-0.031); Immature Granulocyte Percent A 0.4 % (0-0.5); Lymphocytes Absolute Auto 1.14 K/mm3 (0.9-3.2); Lymphocytes Percent Auto 20.3 % (18.3-44.2); Mean Corpuscular HGB Conc 29.4 g/dl (32-36); Mean Corpuscular Hemoglobin 22.8 pg (26-34); Mean Corpuscular Volume 77.4 fl (80-100); Mean Platelet Volume 10.8 fl (7.4-10.4); Monocytes Absolute Auto 0.8 K/mm3 (0.1-0.6); Monocytes Percent Auto 14.4 % (2.6-8.5); Neutrophils Absolute Auto 3.6 K/mm3 (1.3-6.7); Neutrophils Percent Auto 64.3 % (45.5-73.1); Platelet Count Result 271 k/mm3 (150-375); Red Blood Count 3.99 M/mm3 (4.2-5.4); Red Cell Distribution Width 14.6 % (11.5-14.5); White Blood Count 5.6 K/mm3 (4.5-10.0)
[2021-04-20 07:10] LABS: Alanine Aminotransferase 49 U/L (4-35); Albumin Level 3.3 g/dL (3.5-5.1); Alkaline Phosphatase 101 U/L (38-126); Anion Gap 3 mmol/L (8-16); Aspartate Amino Transferase 51 U/L (14-36); Bilirubin,Total 0.2 mg/dL (0.2-1.3); Blood Urea Nitrogen 13 mg/dL (7-17); Calcium 8.3 mg/dL (8.4-10.2); Carbon Dioxide 25 mmol/L (22-30); Chloride 105 mmol/L (98-107); Estimated CRCL calculation 30 ml/min; Estimated Glomerular Filt Rate 37; Glucose 134 mg/dL (65-110); Potassium 4.4 mmol/L (3.4-5.0); Sodium 133 mmol/L (137-145)
[2021-04-20 08:07] LABS: Hepatitis B Surface Antigen Negative (Negative)
[2021-04-20 08:13] LABS: HAV RESULT Negative (Negative); Hepatitis B Core IgM Result Negative (Negative)
[2021-04-20] MEDS: DULoxetine HCL 60 MG CAPSULE.DR PO (08:21)
[2021-04-20] MEDS: PANTOPRAZOLE 40 MG TABLET PO (08:21)
[2021-04-20] MEDS: MIRABEGRON 25 MG ER TABLET PO (08:21)
[2021-04-20] MEDS: levETIRAcetam 250 MG TABLET 750 MG PO ×2 (08:21→19:03)
[2021-04-20] MEDS: ENOXAPARIN 40 MG/0.4 ML SYRINGE SUB-Q (08:21)
[2021-04-20] MEDS: OSELTAMIVIR PHOSPHATE 30 MG CAPSULE PO ×2 (08:21→21:39)
[2021-04-20] MEDS: DONEPEZIL HCL 10 MG TABLET PO (08:21)
[2021-04-20] MEDS: MEMANTINE 10 MG TABLET PO ×2 (08:21→19:03)
[2021-04-20 08:25] LABS: Hepatitis C Virus Antibody Negative (Negative)
[2021-04-20 08:36] LABS: Glucose Point of Care 135 mg/dl (65-105)
--- NOTE | 2021-04-20 11:41 | PC.NURSE ---
Talked with pt this morning, concerned about pt discharging today. Voiced concerns to provider Kelly Esquivel and Ayse from care coordination. stated he is 71 y/o and voiced concerns about providing care for pt at home to this nurse.
--- NOTE | 2021-04-20 12:06 | HOMEO2EVAL ---
Evaluation was performed at [facility] Home Oxygen Evaluation RC: Home Oxygen (O2) Evaluation Start: 04/20/21 07:37 Freq: ONCE Status: Active Protocol: RPE Activity Type Activity Date Activity User E-Sign Co-Sign Detail Recorded Client Recorded Date Recorded By Document 04/20/21 11:45 [email or web address] [email or web address] 04/20/21 12:06 IVONNE Document 04/20/21 11:46 IVONNE [email or web address] 04/20/21 12:06 IVONNE Document 04/20/21 11:47 IVONNE [email or web address] 04/20/21 12:06 IVONNE Document 04/20/21 11:50 IVONNE [email or web address] 04/20/21 12:06 IVONNE Document 04/20/21 12:00 [email or web address] [email or web address] 04/20/21 12:06 IVONNE 04/20/21 04/20/21 04/20/21 11:45 11:46 11:47 Home O2 Evaluation Test Phase Resting Resting Resting Oxygen Delivery Room Air Nasal Cannula Nasal Cannula Oxygen Flow Rate (L/min) 1 2 Pulse Oximetry (90-100 %) 84 L 87 L 91 Home Oxygen Evaluation Comments Treatment Charges O2 Evaluation - Inpatient 04/20/21 04/20/21 11:50 12:00 Home O2 Evaluation Test Phase Exercise Resting Oxygen Delivery Nasal Cannula Nasal Cannula Oxygen Flow Rate (L/min) 2 2 Pulse Oximetry (90-100 %) 93 93 Home Oxygen Evaluation Comments pt requires 2 l at rest and with exertion Treatment Charges
--- NOTE | 2021-04-20 12:27 | PCRCNOTE ---
pt set up with [facility] for home O2. Contact Romina at . Tank to be dropped off for transport home. I requested [facility] to contact for arrangements.
[2021-04-20 12:38] LABS: Glucose Point of Care 165 mg/dl (65-105)
--- NOTE | 2021-04-20 13:32 | PM.IMPN ---
Progress Note: A&P Assessment and Plan (1) Influenza A: Code(s): J10.1 - Influenza due to other identified influenza virus with other respiratory manifestations Status: Acute Assessment and Plan: Patient is positive for influenza A -continue Tamiflu, antibiotics stopped -Pt became hypoxic again today and repeat CXR was normal. -monitor (2) Acute respiratory failure with hypoxia: Code(s): J96.01 - Acute respiratory failure with hypoxia Status: Acute Assessment and Plan: Back on 2L -likely due to above -pneumonia not seen on x-ray, no bacterial pneumonia suspected. Antibiotics discontinued -D-dimer negative, PE less likely -BNP elevated, will obtain echo. Clinically she appears to be euvolemic but does have a few crackles -home o2 done as I was suspecting she was going to go home today but she started requiring o2 at rest so d/c was put on hold. (3) Abnormal liver enzymes: Code(s): R74.8 - Abnormal levels of other serum enzymes Status: Acute Assessment and Plan: Trending down from the prior visit but still elevated -no pain to the area -hepatitis negative -liver normal on u/s 12/27/2019 when her liver enzymes were higher. No need for further investigation. (4) Chronic kidney disease, stage III (moderate): Code(s): N18.3 - Chronic kidney disease, stage 3 (moderate) Status: Acute Assessment and Plan: At baseline (5) Hypochromic microcytic anemia: Code(s): D50.9 - Iron deficiency anemia, unspecified Status: Acute Assessment and Plan: Chronically low but unchanged since last year -no bleeding noted on exam (6) Type 2 diabetes mellitus with hyperglycemia: Code(s): E11.65 - Type 2 diabetes mellitus with hyperglycemia Status: Acute Assessment and Plan: Last glucose 165 -patient usually on 14 units of Tresiba at home. Will hold insulin since the patient has a decreased appetite and has been running within acceptable range -continue sliding scale insulin (7) Diabetic peripheral neuropathy: Code(s): E11.42 - Type 2 diabetes mellitus with diabetic polyneuropathy Status: Acute Assessment and Plan: Chronic and unchanged (8) Dementia: Code(s): F03.90 - Unspecified dementia without behavioral disturbance Status: Acute Assessment and Plan: Chronic and unchanged -continue donepezil and memantine. (9) Major depressive disorder, single episode, unspecified: Code(s): F32.9 - Major depressive disorder, single episode, unspecified Status: Acute Assessment and Plan: Continue Mirabregon, duloxetine. (10) Overactive bladder: Code(s): N32.81 - Overactive bladder Status: Acute Assessment and Plan: Continue oxybutynin Additional Plan worried about caring for her at home. PT and OT ordered. Case management aware. Subjective Date/time seen: 04/20/21 13:32 Interval history: Pt is a 70-year-old female here for influenza. Patient has a hx of dementia but able to answer most questions. She denies chest pain, shortness of breath, fevers, chills, nausea, vomiting, diarrhea or constipation. No new events overnight. is worried about taking care of her at home. Exam Narrative: General: Well developed well nourished patient in NAD HEENT: normocephalic Neck: supple Neuro: Alert and oriented x3. No neurologic focal deficits noted CV:RRR Resp:Crackles at the bases with 2L of o2. No conversational dyspnea. Abd: Soft, non distended. No pain to palpation. Positive bowel sounds Extremities: No swelling, erythema, or pain to palpation. Objective Data Vital Signs Vital Signs: Vital Signs - 24 hr 04/19/21 16:00 04/19/21 22:00 04/20/21 06:00 Temperature 97.9 F 97.7 F 98.4 F Pulse Rate 82 90 87 Respiratory Rate 20 20 16 Blood Pressure 157/55 H 160/75 H 159/71 H Pulse Oximetr
--- NOTE | 2021-04-20 14:35 | PCPTNOTE ---
attempted to see patient for evaluation. Patient unable to stay awake to participate in evaluation.
[2021-04-20 16:57] LABS: Glucose Point of Care 135 mg/dl (65-105)
[2021-04-20] MEDS: SIMVASTATIN 20 MG TABLET 40 MG PO (19:03)
[2021-04-20] MEDS: ASPIRIN 81 MG ENTERIC TABLET PO (21:39)
[2021-04-20 21:52] LABS: Glucose Point of Care 136 mg/dl (65-105)
--- NOTE | 2021-04-20 22:20 | PCRCNOTE ---
past scheduled time for administration, see next available administration
[2021-04-21] VITALS (14 sets, daily range): BP systolic 132–157; BP diastolic 54–70; PULSE 64–90; RESP 18–20; TEMP 35.7–36.5; O2SAT 94–100
[2021-04-21] MEDS: ALBUTEROL SULFATE NEB 2.5 MG/0.5 ML INH 5 MG INHALATION ×3 (02:38→21:49)
[2021-04-21] MEDS: IPRATROPIUM BR 0.02% INH SOLN 0.5 MG/2.5 ML VIAL INHALATION ×3 (02:38→21:49)
--- NOTE | 2021-04-21 07:09 | PM.IMPN ---
Progress Note: A&P Assessment and Plan (1) Influenza A: Code(s): J10.1 - Influenza due to other identified influenza virus with other respiratory manifestations Status: Acute Assessment and Plan: Patient is positive for influenza A -continue Tamiflu, antibiotics stopped -Pt became hypoxic again 04/20 and repeat CXR was normal. -due to her worsening lung sounds, will order CT of the chest. CTA not indicated as the D-dimer is negative and PE less likely -monitor (2) Acute respiratory failure with hypoxia: Code(s): J96.01 - Acute respiratory failure with hypoxia Status: Acute Assessment and Plan: Back on 2L -likely due to above -pneumonia not seen on x-ray, no bacterial pneumonia suspected. Antibiotics discontinued -obtain chest CT -D-dimer negative, PE less likely -BNP elevated and EF is this the to 65%. No significant abnormalities on echo. -home o2 done as I was suspecting she was going to go home today but she started requiring o2 at rest and not looking well so d/c was put on hold. (3) Abnormal liver enzymes: Code(s): R74.8 - Abnormal levels of other serum enzymes Status: Acute Assessment and Plan: Trending down from the prior visit but still elevated -no pain to the area -hepatitis negative -liver normal on u/s 12/27/2019 when her liver enzymes were higher. - No need for further investigation since improving. (4) Chronic kidney disease, stage III (moderate): Code(s): N18.3 - Chronic kidney disease, stage 3 (moderate) Status: Acute Assessment and Plan: At baseline, awaiting today's labs (5) Hypochromic microcytic anemia: Code(s): D50.9 - Iron deficiency anemia, unspecified Status: Acute Assessment and Plan: Chronically low but unchanged since last year -no bleeding noted on exam (6) Type 2 diabetes mellitus with hyperglycemia: Code(s): E11.65 - Type 2 diabetes mellitus with hyperglycemia Status: Acute Assessment and Plan: Last glucose 136 -patient usually on 14 units of Tresiba at home. Will hold insulin since the patient has a decreased appetite and has been running within acceptable range -continue sliding scale insulin (7) Diabetic peripheral neuropathy: Code(s): E11.42 - Type 2 diabetes mellitus with diabetic polyneuropathy Status: Acute Assessment and Plan: Chronic and unchanged (8) Dementia: Code(s): F03.90 - Unspecified dementia without behavioral disturbance Status: Acute Assessment and Plan: Chronic and unchanged -continue donepezil and memantine. (9) Major depressive disorder, single episode, unspecified: Code(s): F32.9 - Major depressive disorder, single episode, unspecified Status: Acute Assessment and Plan: Continue Mirabregon, duloxetine. (10) Overactive bladder: Code(s): N32.81 - Overactive bladder Status: Acute Assessment and Plan: Continue oxybutynin (11) Generalized weakness: Code(s): R53.1 - Weakness Status: Acute Assessment and Plan: is worried that she is too weak to come home and would like a PT evaluation. She has been to [place] in the past. PT did try to see her yesterday but apparently she was tired and taking a nap. Hopefully they will be able to work with her today. Care coordination aware Subjective Date/time seen: 04/21/21 07:09 Interval history: Pt is a 70-year-old female here for influenza. Patient has a hx of dementia but able to answer most questions. She denies chest pain, shortness of breath, fevers, chills, nausea, vomiting, diarrhea or constipation but says she does not feel good. She says she feels tired. No new events overnight. is worried about taking care of her at home. Exam Narrative: General: Well developed well nourished patient in NAD HEENT: normocephalic
[2021-04-21 07:33] LABS: Anion Gap 3 mmol/L (8-16); Blood Urea Nitrogen 16 mg/dL (7-17); Calcium 8.3 mg/dL (8.4-10.2); Carbon Dioxide 26 mmol/L (22-30); Chloride 105 mmol/L (98-107); Estimated CRCL calculation 28 ml/min; Estimated Glomerular Filt Rate 34; Glucose 155 mg/dL (65-110); Hematocrit 32.2 % (37.0-47.0); Hemoglobin 9.5 g/dL (12.0-15.0); Mean Corpuscular HGB Conc 29.5 g/dl (32-36); Mean Corpuscular Hemoglobin 23.1 pg (26-34); Mean Corpuscular Volume 78.2 fl (80-100); Mean Platelet Volume 11.3 fl (7.4-10.4); Platelet Count Result 269 k/mm3 (150-375); Red Blood Count 4.12 M/mm3 (4.2-5.4); Red Cell Distribution Width 14.7 % (11.5-14.5); Sodium 134 mmol/L (137-145); White Blood Count 6.9 K/mm3 (4.5-10.0)
[2021-04-21 08:35] LABS: Glucose Point of Care 147 mg/dl (65-105)
[2021-04-21] MEDS: levETIRAcetam 250 MG TABLET 750 MG PO ×2 (08:37→17:54)
[2021-04-21] MEDS: OSELTAMIVIR PHOSPHATE 30 MG CAPSULE PO ×2 (08:38→21:23)
[2021-04-21] MEDS: PANTOPRAZOLE 40 MG TABLET PO (08:38)
[2021-04-21] MEDS: DONEPEZIL HCL 10 MG TABLET PO (08:38)
[2021-04-21] MEDS: MIRABEGRON 25 MG ER TABLET PO (08:38)
[2021-04-21] MEDS: MEMANTINE 10 MG TABLET PO ×2 (08:39→17:55)
[2021-04-21] MEDS: ENOXAPARIN 40 MG/0.4 ML SYRINGE SUB-Q (08:39)
[2021-04-21] MEDS: DULoxetine HCL 60 MG CAPSULE.DR PO (08:39)
--- NOTE | 2021-04-21 11:39 | PCRCNOTE ---
Window of time for administration has passed. See next scheduled administration.
[2021-04-21 12:17] LABS: Glucose Point of Care 175 mg/dl (65-105)
[2021-04-21 17:43] LABS: Glucose Point of Care 148 mg/dl (65-105)
[2021-04-21] MEDS: SIMVASTATIN 20 MG TABLET 40 MG PO (17:55)
[2021-04-21] MEDS: ASPIRIN 81 MG ENTERIC TABLET PO (21:23)
[2021-04-21 21:58] LABS: Glucose Point of Care 145 mg/dl (65-105)
[2021-04-22] VITALS (11 sets, daily range): BP systolic 139–147; BP diastolic 56–66; PULSE 69–95; RESP 17–19; TEMP 35.6–36.6; O2SAT 91–100
[2021-04-22] MEDS: ALBUTEROL SULFATE NEB 2.5 MG/0.5 ML INH 5 MG INHALATION ×3 (01:39→22:00)
[2021-04-22] MEDS: IPRATROPIUM BR 0.02% INH SOLN 0.5 MG/2.5 ML VIAL INHALATION ×3 (01:40→21:00)
[2021-04-22 08:11] LABS: Glucose Point of Care 151 mg/dl (65-105)
[2021-04-22] MEDS: levETIRAcetam 250 MG TABLET 750 MG PO ×2 (08:27→17:13)
[2021-04-22] MEDS: ENOXAPARIN 40 MG/0.4 ML SYRINGE SUB-Q (08:27)
[2021-04-22] MEDS: MIRABEGRON 25 MG ER TABLET PO (08:27)
[2021-04-22] MEDS: PANTOPRAZOLE 40 MG TABLET PO (08:28)
[2021-04-22] MEDS: DULoxetine HCL 60 MG CAPSULE.DR PO (08:28)
[2021-04-22] MEDS: DONEPEZIL HCL 10 MG TABLET PO (08:28)
[2021-04-22] MEDS: MEMANTINE 10 MG TABLET PO ×2 (08:28→17:13)
[2021-04-22] MEDS: OSELTAMIVIR PHOSPHATE 30 MG CAPSULE PO ×2 (08:28→21:44)
[2021-04-22 08:42] LABS: Hematocrit 30.4 % (37.0-47.0); Mean Corpuscular HGB Conc 29.6 g/dl (32-36); Mean Corpuscular Hemoglobin 22.8 pg (26-34); Platelet Count Result 291 k/mm3 (150-375); Red Blood Count 3.95 M/mm3 (4.2-5.4); Red Cell Distribution Width 14.5 % (11.5-14.5); White Blood Count 7.5 K/mm3 (4.5-10.0)
[2021-04-22 08:51] LABS: Anion Gap 8 mmol/L (8-16); Blood Urea Nitrogen 19 mg/dL (7-17); CRP 1.1 mg/dL (<1.0); Calcium 8.2 mg/dL (8.4-10.2); Carbon Dioxide 25 mmol/L (22-30); Chloride 103 mmol/L (98-107); Estimated CRCL calculation 27 ml/min; Estimated Glomerular Filt Rate 32; Glucose 151 mg/dL (65-110); Magnesium 1.8 mg/dL (1.6-2.3); Potassium 3.9 mmol/L (3.4-5.0); Sodium 136 mmol/L (137-145)
--- NOTE | 2021-04-22 09:48 | PM.IMPN ---
Progress Note: A&P Assessment and Plan (1) Influenza A: Code(s): J10.1 - Influenza due to other identified influenza virus with other respiratory manifestations Status: Acute Assessment and Plan: Patient is positive for influenza A -continue Tamiflu, antibiotics stopped -Pt became hypoxic again 04/20 and repeat CXR was normal. -due to her worsening lung sounds, will order CT of the chest. CTA not indicated as the D-dimer is negative and PE less likely -monitor (2) Acute respiratory failure with hypoxia: Code(s): J96.01 - Acute respiratory failure with hypoxia Status: Acute Assessment and Plan: Back on 2L -likely due to above -pneumonia not seen on x-ray, no bacterial pneumonia suspected. Antibiotics discontinued -obtain chest CT -D-dimer negative, PE less likely -BNP elevated and EF is this the to 65%. No significant abnormalities on echo. -home o2 done as I was suspecting she was going to go home today but she started requiring o2 at rest and not looking well so d/c was put on hold. (3) Abnormal liver enzymes: Code(s): R74.8 - Abnormal levels of other serum enzymes Status: Acute Assessment and Plan: Trending down from the prior visit but still elevated -no pain to the area -hepatitis negative -liver normal on u/s 12/27/2019 when her liver enzymes were higher. - No need for further investigation since improving. (4) Chronic kidney disease, stage III (moderate): Code(s): N18.3 - Chronic kidney disease, stage 3 (moderate) Status: Acute Assessment and Plan: At baseline, awaiting today's labs (5) Hypochromic microcytic anemia: Code(s): D50.9 - Iron deficiency anemia, unspecified Status: Acute Assessment and Plan: Chronically low but unchanged since last year -no bleeding noted on exam (6) Type 2 diabetes mellitus with hyperglycemia: Code(s): E11.65 - Type 2 diabetes mellitus with hyperglycemia Status: Acute Assessment and Plan: Last glucose 136 -patient usually on 14 units of Tresiba at home. Will hold insulin since the patient has a decreased appetite and has been running within acceptable range -continue sliding scale insulin (7) Diabetic peripheral neuropathy: Code(s): E11.42 - Type 2 diabetes mellitus with diabetic polyneuropathy Status: Acute Assessment and Plan: Chronic and unchanged (8) Dementia: Code(s): F03.90 - Unspecified dementia without behavioral disturbance Status: Acute Assessment and Plan: Chronic and unchanged -continue donepezil and memantine. (9) Major depressive disorder, single episode, unspecified: Code(s): F32.9 - Major depressive disorder, single episode, unspecified Status: Acute Assessment and Plan: Continue Mirabregon, duloxetine. (10) Overactive bladder: Code(s): N32.81 - Overactive bladder Status: Acute Assessment and Plan: Continue oxybutynin (11) Generalized weakness: Code(s): R53.1 - Weakness Status: Acute Assessment and Plan: is worried that she is too weak to come home and would like a PT evaluation. She has been to [place] in the past. PT did try to see her yesterday but apparently she was tired and taking a nap. Hopefully they will be able to work with her today. Care coordination aware Additional Plan worried about caring for her at home. PT and OT ordered. Case management aware. 04/22/2021 Patient is getting treatment for flu. Slightly feeling better today. Patient creatinine is slightly high will start IV fluids. Care coordination consult for placement. Subjective Date/time seen: 04/22/21 09:48 Patient was seen during the morning rounds today. Feeling slightly better. Decreased shortness of breath, chest pain. No abdominal pain, no nausea,. Mood stable. Interval history: Pt
[2021-04-22] MEDS: SODIUM CHLORIDE 0.45% 1,000 ML 75 ML IV CONT (12:39)
[2021-04-22 12:53] LABS: Glucose Point of Care 262 mg/dl (65-105)
[2021-04-22] MEDS: INSULIN ASPART (*BKC) 100 UNITS/ML SUB-Q (12:55)
[2021-04-22 16:54] LABS: Glucose Point of Care 140 mg/dl (65-105)
[2021-04-22] MEDS: SIMVASTATIN 20 MG TABLET 40 MG PO (17:13)
[2021-04-22] MEDS: ASPIRIN 81 MG ENTERIC TABLET PO (21:44)
[2021-04-22] MEDS: traZODone HCL 25 MG TABLET PO (21:45)
[2021-04-22 23:05] LABS: Glucose Point of Care 184 mg/dl (65-105)
[2021-04-23] VITALS (14 sets, daily range): BP systolic 123–150; BP diastolic 52–70; PULSE 63–97; RESP 14–20; TEMP 36.5–37.1; O2SAT 91–100
[2021-04-23] MEDS: IPRATROPIUM BR 0.02% INH SOLN 0.5 MG/2.5 ML VIAL INHALATION ×2 (01:36→14:51)
[2021-04-23] MEDS: ALBUTEROL SULFATE NEB 2.5 MG/0.5 ML INH 5 MG INHALATION ×2 (01:37→14:51)
[2021-04-23] MEDS: SODIUM CHLORIDE 0.45% 1,000 ML 75 ML IV CONT ×2 (05:21→21:15)
[2021-04-23 07:22] LABS: Alanine Aminotransferase 21 U/L (4-35); Albumin Level 3.1 g/dL (3.5-5.1); Alkaline Phosphatase 90 U/L (38-126); Anion Gap 8 mmol/L (8-16); Aspartate Amino Transferase 24 U/L (14-36); Bilirubin,Total 0.2 mg/dL (0.2-1.3); Blood Urea Nitrogen 16 mg/dL (7-17); Calcium 8.1 mg/dL (8.4-10.2); Carbon Dioxide 25 mmol/L (22-30); Chloride 103 mmol/L (98-107); Estimated CRCL calculation 27 ml/min; Estimated Glomerular Filt Rate 32; Glucose 146 mg/dL (65-110); Potassium 3.7 mmol/L (3.4-5.0); Sodium 136 mmol/L (137-145)
[2021-04-23 08:02] LABS: Glucose Point of Care 157 mg/dl (65-105)
[2021-04-23] MEDS: levETIRAcetam 250 MG TABLET 750 MG PO ×2 (08:56→17:15)
[2021-04-23] MEDS: OSELTAMIVIR PHOSPHATE 30 MG CAPSULE PO ×2 (08:56→21:15)
[2021-04-23] MEDS: DONEPEZIL HCL 10 MG TABLET PO (08:56)
[2021-04-23] MEDS: MIRABEGRON 25 MG ER TABLET PO (08:56)
[2021-04-23] MEDS: PANTOPRAZOLE 40 MG TABLET PO (08:56)
[2021-04-23] MEDS: ENOXAPARIN 40 MG/0.4 ML SYRINGE SUB-Q (08:56)
[2021-04-23] MEDS: DULoxetine HCL 60 MG CAPSULE.DR PO (08:56)
[2021-04-23] MEDS: MEMANTINE 10 MG TABLET PO ×2 (08:56→17:16)
--- NOTE | 2021-04-23 11:05 | PCRCNOTE ---
Window of time for administration has passed. See next scheduled administration.
--- NOTE | 2021-04-23 11:59 | PM.IMPN ---
Progress Note: A&P Assessment and Plan (1) Influenza A: Code(s): J10.1 - Influenza due to other identified influenza virus with other respiratory manifestations Status: Acute Assessment and Plan: Patient is positive for influenza A -continue Tamiflu, antibiotics stopped -Pt became hypoxic again 04/20 and repeat CXR was normal. -due to her worsening lung sounds, will order CT of the chest. CTA not indicated as the D-dimer is negative and PE less likely -monitor (2) Acute respiratory failure with hypoxia: Code(s): J96.01 - Acute respiratory failure with hypoxia Status: Acute Assessment and Plan: Back on 2L -likely due to above -pneumonia not seen on x-ray, no bacterial pneumonia suspected. Antibiotics discontinued -obtain chest CT -D-dimer negative, PE less likely -BNP elevated and EF is this the to 65%. No significant abnormalities on echo. -home o2 done as I was suspecting she was going to go home today but she started requiring o2 at rest and not looking well so d/c was put on hold. (3) Abnormal liver enzymes: Code(s): R74.8 - Abnormal levels of other serum enzymes Status: Acute Assessment and Plan: Trending down from the prior visit but still elevated -no pain to the area -hepatitis negative -liver normal on u/s 12/27/2019 when her liver enzymes were higher. - No need for further investigation since improving. (4) Chronic kidney disease, stage III (moderate): Code(s): N18.3 - Chronic kidney disease, stage 3 (moderate) Status: Acute Assessment and Plan: At baseline, awaiting today's labs (5) Hypochromic microcytic anemia: Code(s): D50.9 - Iron deficiency anemia, unspecified Status: Acute Assessment and Plan: Chronically low but unchanged since last year -no bleeding noted on exam (6) Type 2 diabetes mellitus with hyperglycemia: Code(s): E11.65 - Type 2 diabetes mellitus with hyperglycemia Status: Acute Assessment and Plan: Last glucose 136 -patient usually on 14 units of Tresiba at home. Will hold insulin since the patient has a decreased appetite and has been running within acceptable range -continue sliding scale insulin (7) Diabetic peripheral neuropathy: Code(s): E11.42 - Type 2 diabetes mellitus with diabetic polyneuropathy Status: Acute Assessment and Plan: Chronic and unchanged (8) Dementia: Code(s): F03.90 - Unspecified dementia without behavioral disturbance Status: Acute Assessment and Plan: Chronic and unchanged -continue donepezil and memantine. (9) Major depressive disorder, single episode, unspecified: Code(s): F32.9 - Major depressive disorder, single episode, unspecified Status: Acute Assessment and Plan: Continue Mirabregon, duloxetine. (10) Overactive bladder: Code(s): N32.81 - Overactive bladder Status: Acute Assessment and Plan: Continue oxybutynin (11) Generalized weakness: Code(s): R53.1 - Weakness Status: Acute Assessment and Plan: is worried that she is too weak to come home and would like a PT evaluation. She has been to [place] in the past. PT did try to see her yesterday but apparently she was tired and taking a nap. Hopefully they will be able to work with her today. Care coordination aware Additional Plan worried about caring for her at home. PT and OT ordered. Case management aware. 04/22/2021 Patient is getting treatment for flu. Slightly feeling better today. Patient creatinine is slightly high will start IV fluids. Care coordination consult for placement. 04/23/2021 Patient continues to improve on p.o. medication. Tomorrow is the last dose of oral medication. Is stays okay will discharge in the morning. Subjective Date/time seen: 04/23/21 11:59 Patient was seen during the [facility]
[2021-04-23 12:19] LABS: Glucose Point of Care 200 mg/dl (65-105)
[2021-04-23 16:36] LABS: Glucose Point of Care 201 mg/dl (65-105)
[2021-04-23] MEDS: INSULIN ASPART (*BKC) 100 UNITS/ML SUB-Q (17:17)
[2021-04-23] MEDS: SIMVASTATIN 20 MG TABLET 40 MG PO (17:17)
[2021-04-23] MEDS: traZODone HCL 25 MG TABLET PO (21:14)
[2021-04-23] MEDS: ASPIRIN 81 MG ENTERIC TABLET PO (21:15)
[2021-04-24 02:33] VITALS: PULSE 82; RESP 16
[2021-04-24 06:00] VITALS: BP 153/59; PULSE 75; RESP 20; TEMP 36.5; O2SAT 100
[2021-04-24 08:00] VITALS: O2SAT 95
[2021-04-24 08:03] LABS: Glucose Point of Care 139 mg/dl (65-105)
[2021-04-24] MEDS: ENOXAPARIN 40 MG/0.4 ML SYRINGE SUB-Q (09:25)
[2021-04-24] MEDS: PANTOPRAZOLE 40 MG TABLET PO (09:26)
[2021-04-24] MEDS: DULoxetine HCL 60 MG CAPSULE.DR PO (09:26)
[2021-04-24] MEDS: OSELTAMIVIR PHOSPHATE 30 MG CAPSULE PO (09:26)
[2021-04-24] MEDS: DONEPEZIL HCL 10 MG TABLET PO (09:26)
[2021-04-24] MEDS: MIRABEGRON 25 MG ER TABLET PO (09:26)
[2021-04-24] MEDS: levETIRAcetam 250 MG TABLET 750 MG PO (09:26)
[2021-04-24] MEDS: MEMANTINE 10 MG TABLET PO (09:26)
--- NOTE | 2021-04-24 11:17 | P.DS_ITS ---
DS: Admitting Diagnosis Discharge Date 04/24/2021 Admitting Diagnosis Influenza infection DS: Summary Hospital Course Reason for hospitalization: Influenza infection Hospital Course: Patient is 70 years old female was admitted complains of having shortness of breath. Patient has possible influenza infection Patient was given IV fluids and sputum for and continue home medication. Today patient is feeling better so patient discharged back home under home health care in stable condition. Status at Discharge Cognitive/behavioral status at discharge: Stable Overall status at discharge: patient is back to baseline Time Spent with Patient Time attestation: Total time spent providing and/or coordinating discharge services: Time spent: Less than 30 minutes DS: Data Data Completed and Pending Labs on day of discharge: Labs from last 24 hours 04/24/21 04/23/21 04/23/21 07:38 16:31 12:02 POC Capillary Glucose 139 H 201 H 200 H Discharge Plan Discharge Attending physician on discharge: Patrice Iraheta Discharging Clinician: Patrice Iraheta Patient Disposition: Home Health Service Activity: as tolerated Diet: as tolerated and heart healthy Discharge Instructions: Per Care Coordination: [facility] has been arranged to follow at discharge. [facility] will contact you prior to their first visit. [facility] will follow for RN and PT/OT eval and treat. [facility] can be contacted at [phone]. Patient Instructions: Antibiotic Form, Pain Management in Older Adults (DC) Stand Alone Forms: General Discharge Information Follow-up/Referrals: Ruben Story MD [Primary Care Provider] - Discharge Medications: Continued memantine 10 mg tablet 10 mg PO BID RF: 0 aspirin [Adult Low Dose Aspirin] 81 mg tablet,delayed release (DR/EC) 81 mg PO HS RF: 0 duloxetine 60 mg capsule,delayed release(DR/EC) 60 mg PO DAILY RF: 0 donepezil 10 mg tablet 10 mg PO DAILY RF: 0 simvastatin 40 mg tablet 40 mg PO QPM Qty: 90 RF: 2 Tresiba FlexTouch U-100 100 unit/mL (3 mL) insulin pen 14 unit SUB-Q QPM 90 Days Qty: 12.6 RF: 2 Hold Instructions: Resume on 12/28/19. losartan 50 mg tablet 50 mg PO DAILY 90 Days Qty: 90 RF: 3 trazodone 50 mg tablet 25 mg PO QHS PRN (Reason: Sleep) RF: 0 multivitamin Tablet 1 tablet PO DAILY RF: 0 glimepiride 1 mg tablet 1 mg PO QPM RF: 0 levetiracetam 750 mg tablet 750 mg PO BID RF: 0 metformin 500 mg tablet extended release 24 hr 500 mg BID RF: 0 omeprazole 20 mg capsule,delayed release(DR/EC) 20 mg PO DAILY Qty: 90 RF: 3 Myrbetriq 25 mg tablet extended release 24 hr 25 mg PO DAILY Qty: 30 RF: 5 Date of admission: 04/21/21 12:37 Primary Care Provider: Ruben Story Admitting Provider: Jennifer Arias V. Attending physician on admission: Kelly Siddiqui Condition: Serious Quality VTE Prophylaxis VTE prophylaxis: mechanical ordered
--- NOTE | 2021-04-24 11:45 | PCRCNOTE ---
Window of time for administration has passed. See next scheduled administration.
[2021-04-24 12:08] LABS: Glucose Point of Care 165 mg/dl (65-105)
[2021-04-24] MEDS: IPRATROPIUM BR 0.02% INH SOLN 0.5 MG/2.5 ML VIAL INHALATION (12:26)
[2021-04-24] MEDS: ALBUTEROL SULFATE NEB 2.5 MG/0.5 ML INH 5 MG INHALATION (12:26)
[2021-04-24 12:28] VITALS: PULSE 76; RESP 18; O2SAT 94
[2021-04-24 12:39] VITALS: PULSE 76; RESP 18
[2021-04-24 14:00] VITALS: BP 149/65; PULSE 82; RESP 16; TEMP 36.6; O2SAT 98
== END 2021-04-24 13:00 | disposition home health service (06) | DRG 193 ==
LOC: ANHED 21:17 → ANH3MEDSUR 04-19 00:26
PROVIDERS: Emergency Medicine; Physician Assistant; Admitting Provider Internal Medicine; Emergency Provider Emergency Medicine; PCP Family Medicine; Visit Provider Internal Medicine
DX: J10.1 Influenza due to other identified influenza virus with other respiratory manifestations (principal); J96.01 Acute respiratory failure with hypoxia; N17.9 Acute kidney failure, unspecified; Z20.822 Contact with and (suspected) exposure to COVID-19; F03.90 Unspecified dementia, unspecified severity, without behavioral disturbance, psychotic disturbance, mood disturbance, and anxiety; R53.1 Weakness; I12.9 Hypertensive chronic kidney disease with stage 1 through stage 4 chronic kidney disease, or unspecified chronic kidney disease; E11.22 Type 2 diabetes mellitus with diabetic chronic kidney disease; N18.30 Chronic kidney disease, stage 3 unspecified; E11.42 Type 2 diabetes mellitus with diabetic polyneuropathy; E11.36 Type 2 diabetes mellitus with diabetic cataract; H26.9 Unspecified cataract; E11.65 Type 2 diabetes mellitus with hyperglycemia; D50.9 Iron deficiency anemia, unspecified; F32.9 Major depressive disorder, single episode, unspecified; N32.81 Overactive bladder; M81.0 Age-related osteoporosis without current pathological fracture; R74.8 Abnormal levels of other serum enzymes; Z79.4 Long term (current) use of insulin; Z79.82 Long term (current) use of aspirin; Z79.84 Long term (current) use of oral hypoglycemic drugs; Z79.899 Other long term (current) drug therapy; Z87.891 Personal history of nicotine dependence
CPT/HCPCS: 36415; 71045; 71046; 71250; 80048; 80053; 80074; 80076; 81001; 82948; 83735; 83880; 84443; 85025; 85027; 85380; 86140; 87040; 87426; 87804; 93005; 93306; 94618; 94640; 96365; 96372; 97110; 97116; 97162; 97165; 97530; 97535; 99285; A9270; C9803; G0378; J0456; J0696; J1650; J1815; J7030; U0003; U0005

== ENCOUNTER 2021-05-12 16:08 | Outpatient (NON) | payer MEDICARE, SELFPAY ==
[2021-05-12 16:38] LABS: Basophils Absolute Auto 0.04 K/mm3 (0.00-0.10); Basophils Percent Auto 0.6 % (0.0-1.0); Eosinophils Absolute Auto 0.05 K/mm3 (0.02-0.50); Eosinophils Percent Auto 0.8 % (1.0-6.0); Hematocrit 33.8 % (35.0-42.0); Hemoglobin 9.7 g/dL (11.7-13.8); Immature Platelet Fraction Pct 6.2 % (1.0-7.0); Lymphocytes Absolute Auto 2.86 K/mm3 (1.10-4.50); Lymphocytes Percent Auto 45.5 % (18.0-42.0); Mean Corpuscular HGB Conc 28.7 g/dL (32.0-36.0); Mean Corpuscular Hemoglobin 22.9 pg (27.0-31.0); Mean Corpuscular Volume 79.7 fL (78.0-102.0); Mean Platelet Volume 12.9 fl (9.2-11.8); Monocytes Absolute Auto 0.61 K/mm3 (0.10-0.90); Monocytes Percent Auto 9.7 % (2.0-11.0); Neutrophils Absolute Auto 2.7 K/mm3 (1.7-7.2); Neutrophils Percent Auto 43.4 % (50.0-70.0); Platelet Count Result 294 K/mm3 (150-420); Red Blood Count 4.24 M/mm3 (4.20-5.40); Red Cell Distribution Width 14.4 % (11.6-14.4); White Blood Count 6.3 K/mm3 (4.8-10.8)
[2021-05-12 16:57] LABS: Alanine Aminotransferase 23 U/L (14-59); Albumin Level 2.8 g/dL (3.4-5.0); Alkaline Phosphatase 211 U/L (46-116); Anion Gap 10 mmol/L (8-16); Aspartate Amino Transferase 23 U/L (15-37); Bilirubin,Total 0.3 mg/dL (0.00-1.00); Blood Urea Nitrogen 12 mg/dL (7-18); Calcium 8.6 mg/dL (8.5-10.1); Carbon Dioxide 24 mmol/L (21-32); Chloride 105 mmol/L (98-108); Estimated Glomerular Filt Rate 36; Glucose 104 mg/dL (70-99); Osmolality Calculated 287 mOsm/kg (285-295); Potassium 5.1 mmol/L (3.5-5.1); Sodium 139 mmol/L (136-145); Thyroid Stimulating Hormone 2.45 uIU/mL (0.36-3.74)
== END 2021-05-12 16:09 | disposition home or self-care (01) ==
PROVIDERS: PCP Family Medicine; Visit Provider Family Medicine
DX: J10.1 Influenza due to other identified influenza virus with other respiratory manifestations (principal); J96.01 Acute respiratory failure with hypoxia; E11.22 Type 2 diabetes mellitus with diabetic chronic kidney disease; N18.30 Chronic kidney disease, stage 3 unspecified
CPT/HCPCS: 36415; 80053; 84443; 85025; 85055

== ENCOUNTER 2021-10-01 17:00 | Outpatient (CLI) | payer MEDICARE, SELFPAY ==
[2021-10-01 17:22] LABS: Basophils Absolute Auto 0.05 K/mm3 (0.00-0.10); Basophils Percent Auto 0.6 % (0.0-1.0); Eosinophils Percent Auto 1.2 % (1.0-6.0); Hematocrit 43.5 % (35.0-42.0); Hemoglobin 13.5 g/dL (11.7-13.8); Immature Granulocyte Absolute 0.03 K/mm3 (0.00-0.00); Immature Granulocyte Percent A 0.4 % (0.0-0.0); Lymphocytes Absolute Auto 2.86 K/mm3 (1.10-4.50); Lymphocytes Percent Auto 34.9 % (18.0-42.0); Mean Corpuscular Hemoglobin 25.6 pg (27.0-31.0); Mean Corpuscular Volume 82.4 fL (78.0-102.0); Mean Platelet Volume 10.9 fl (9.2-11.8); Monocytes Absolute Auto 0.49 K/mm3 (0.10-0.90); Neutrophils Absolute Auto 4.7 K/mm3 (1.7-7.2); Neutrophils Percent Auto 56.9 % (50.0-70.0); Platelet Count Result 289 K/mm3 (150-420); Red Blood Count 5.28 M/mm3 (4.20-5.40); Red Cell Distribution Width 13.7 % (11.6-14.4); White Blood Count 8.2 K/mm3 (4.8-10.8)
[2021-10-01 17:52] LABS: Ferritin 52 ng/mL (8-252); Iron 94 ug/dL (50-170); Percent Iron Saturation 28 % (12-57)
== END 2021-10-01 17:01 | disposition home or self-care (01) ==
LOC: CHSLAB 17:02
PROVIDERS: PCP Family Medicine; Visit Provider Family Medicine
DX: D64.9 Anemia, unspecified (principal)
CPT/HCPCS: 36415; 82728; 83540; 83550; 85025

== ENCOUNTER 2021-10-06 16:09 | Outpatient (CLI) | payer MEDICARE, SELFPAY ==
[2021-10-06 17:35] LABS: Alanine Aminotransferase 25 U/L (14-59); Alkaline Phosphatase 129 U/L (46-116); Anion Gap 5 mmol/L (8-16); Aspartate Amino Transferase 23 U/L (15-37); Bilirubin,Total 0.3 mg/dL (0.00-1.00); Blood Urea Nitrogen 18 mg/dL (7-18); Calcium 8.5 mg/dL (8.5-10.1); Carbon Dioxide 26 mmol/L (21-32); Chloride 104 mmol/L (98-108); Estimated Glomerular Filt Rate 30; Glucose 260 mg/dL (70-99); Osmolality Calculated 290 mOsm/kg (285-295); Sodium 135 mmol/L (136-145); Thyroid Stimulating Hormone 0.91 uIU/mL (0.36-3.74); Total Protein 6.1 g/dL (6.4-8.2); Vitamin B12 535 pg/mL (193-986)
[2021-10-08 12:16] LABS: Folic Acid > 20.0 ng/mL (8.6->20)
== END 2021-10-06 16:10 | disposition home or self-care (01) ==
LOC: CHSLAB 16:12
PROVIDERS: PCP Family Medicine; Visit Provider Family Medicine
DX: R53.83 Other fatigue (principal); E11.22 Type 2 diabetes mellitus with diabetic chronic kidney disease; I12.9 Hypertensive chronic kidney disease with stage 1 through stage 4 chronic kidney disease, or unspecified chronic kidney disease; N18.30 Chronic kidney disease, stage 3 unspecified
CPT/HCPCS: 36415; 80053; 82607; 82746; 84443

== ENCOUNTER 2021-10-14 15:47 | Emergency (ER) | payer MEDICARE, SELFPAY ==
[2021-10-14 15:50] VITALS: BP 189/77; PULSE 102; RESP 16; TEMP 36.1; O2SAT 97
--- NOTE | 2021-10-14 16:01 | ED.EYEPROB ---
HPI - Eye Problem General Chief complaint: Eye Problems Stated complaint: Redness around eye Source: patient and family Mode of arrival: ambulatory Limitations: no limitations History of Present Illness HPI Narrative: This is a 71-year-old female that presents with some redness around her right eye with some mild itching with normal white sclera with no drainage, there is no sinus congestion no shortness of breath no fever or chills. chief complaint: eye redness Onset (ago): day(s) Onset description: gradual Duration: constant Location: right eye Eye Symptoms: redness and itching Place: home Mechanism: none Severity: mild Related Data Home Medications Medication Instructions Recorded Confirmed aspirin 81 mg tablet,delayed 81 mg PO HS 05/14/19 10/06/21 release (Adult Low Dose Aspirin) duloxetine 60 mg capsule,delayed 60 mg PO DAILY 05/14/19 10/06/21 release multivitamin 1 tablet PO DAILY 04/07/21 10/06/21 trazodone 50 mg tablet 25 mg PO QHS PRN Sleep 04/07/21 10/06/21 Lactobacills gasseri-Bifidobac 1 cap PO DAILY 06/01/21 10/06/21 bifidum,longum 1.5 billion cell capsule ([employer]) bismuth subsalicylate 262 mg 2 tablet PO BID PRN 06/01/21 10/06/21 tablet (Kaopectate (bismuth subsalicylate)) calcium polycarbophil 625 mg 1,250 mg PO TID 06/01/21 10/06/21 tablet (F[employer]) donepezil 10 mg tablet 20 mg PO DAILY 06/01/21 10/06/21 loperamide 2 mg tablet (Imodium 2 mg PO DAILY PRN 06/01/21 10/06/21 A-D) memantine 10 mg tablet 10 mg PO BID 06/01/21 10/06/21 Allergies Allergy/AdvReac Type Severity Reaction Status Date / Time iodine Allergy Unknown Hives Verified 10/14/21 15:58 shellfish derived Allergy Unknown Stopped Verified 10/14/21 15:58 Breathing,Hives Contrast Media Allergy Mild RASH/DIFFICULTY Uncoded 10/14/21 15:58 BREATHING Review of Systems Review of Systems: All systems reviewed & are unremarkable except as noted in HPI and below PMFSH Past Medical History Medical History Abnormal liver enzymes Aftercare for fracture of vertebrae Anemia Anxiety Arthritis Back pain Cataracts, both eyes Chronic kidney disease, stage III (moderate) Compression fracture T12/ L1 Dementia Diabetic peripheral neuropathy Elevated liver function tests Eructation High blood pressure Hypochromic microcytic anemia Hypoglycemia associated with type 2 diabetes mellitus Influenza A Meningioma Osteoporosis Overactive bladder Pure hypercholesterolemia, unspecified Seizures Sleep dysfunction with arousal disturbance Type 2 diabetes mellitus with hyperglycemia Surgical History Surgical History History of ankle fracture s/p ORIF, bilateral History of arthroscopy of knee History of cholecystectomy History of gastric stapling History of hysterectomy Family History Family History Mother Hypertension Family history of diabetes mellitus in first degree relative Family history of thyroid disease Family history of osteoporosis Family history of mental disorder Family history of glaucoma Family history of cataracts Family history of anemia Family history of chronic obstructive pulmonary disease Family history of congestive heart failure Sibling Hypertension Family history of diabetes mellitus in first degree relative Depression Family history of alcoholism Father Family history of diabetes mellitus in first degree relative Social History Social History Smoking packs per day: 1 Smoking cigarettes per day: 20.0 Years smoked: 30 Smoking pack-years: 30.00 Smoking status: Former smoker Second hand tobacco smoke exposure: No Alcohol intake: never Substance use: never Substance use type: does not use Gender identity (if verbalized b
[2021-10-14] MEDS: NEOMYCIN/POLYMYXIN/BACITR/HC OINT 15 GM TUBE 1 APPLIC TOPICAL (16:18)
== END 2021-10-14 16:15 | disposition home or self-care (01) ==
PROVIDERS: Emergency Provider Emergency Medicine; PCP Family Medicine
DX: H01.00A Unspecified blepharitis right eye, upper and lower eyelids (principal); I12.9 Hypertensive chronic kidney disease with stage 1 through stage 4 chronic kidney disease, or unspecified chronic kidney disease; N18.30 Chronic kidney disease, stage 3 unspecified; M81.0 Age-related osteoporosis without current pathological fracture; E78.00 Pure hypercholesterolemia, unspecified; E11.65 Type 2 diabetes mellitus with hyperglycemia; E11.42 Type 2 diabetes mellitus with diabetic polyneuropathy; Z87.891 Personal history of nicotine dependence
CPT/HCPCS: 99283; A9270